=== PATIENT | male | born 1930 | race Caucasian/White ===

== ENCOUNTER 2017-02-15 01:26 | Inpatient (IN) | payer OTHER, MEDICARE ==
[~2017-02-15] VITALS: Ht 177.8 cm; Wt 83.2 kg
[2017-02-15] VITALS (14 sets, daily range): BP systolic 146–188; BP diastolic 66–88; PULSE 85–104; RESP 16–18; TEMP 97.8–100; O2SAT 93–100
[~2017-02-15 01:26] MED LIST: ALLO300T2 PO; GEMF600T PO; HYDR-2376 PO; HYDR-3580 PO; LISI-515 PO; PROT40TA PO; RIVA10 PO; XARE10TA PO; [UNRECOGNIZED DRUG - OTHER]
--- NOTE | 2017-02-15 01:54 | PD ---
HPI Chief Complaint: Fall Time Seen by Provider: 01:34 Travel History International Travel<30 days: No Contact w/Intl Traveler<30days: No Traveled to known affect area: No History of Present Illness HPI The patient is an 86 year old male who presents to the [facility] emergency department with a history of losing his balance prior to arrival and falling onto the tile floor. The patient reports that he has had an unsteady gait since May 2016 when he broke his right hip and had hip surgery. He was previously walking around with a cane, however as he was getting stronger he stopped using it. The patient reports that he now has left hip pain. He has pain with any attempts at range of motion. The patient has an abrasion to the left cheek with bleeding that has been controlled. The patient denies having any headache or loss of consciousness. He denies having any neck pain, paresthesias, numbness or tingling to his extremities or weakness to his extremities. The patient denies having any chest pain, chest pressure, shortness of breath. He denies having any abdominal pain. On review of systems , he denies having any recent fevers, cough, congestion, urinary symptoms, or neurologic symptoms. 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 Blood Disorders: Yes (LEUKEMIA) Cancer: No Cardiovascular Problems: No High Cholesterol: Yes Chemotherapy: No Diminished Hearing: No Gastrointestinal Disorders: No GERD: Yes Gout: Yes Genitourinary: Yes (PROSTATE ENLARGED) Hypertension: Yes Musculoskeletal: No Neurologic: No Psychiatric: No Respiratory: No Radiation Therapy: No Tetanus Vaccination: > 5 Years Influenza Vaccination: No Past Surgical History Narrative Surgical The patient's past surgical history is significant for tonsillectomy, cholecystectomy, endoscopy and colonoscopy, and right hip ORIF in May 2016. Abdominal Surgery: Yes (ALEJANDRA MARCH 2007) Cardiac Surgery: No Cholecystectomy: Yes Ear Surgery: No Endocrine Surgery: No Eye Surgery: No Genitourinary Surgery: No Gynecologic Surgery: No Thoracic Surgery: No Tonsillectomy: Yes Social History Alcohol Use: Yes Tobacco Use: No Substance Use: No Allergies-Medications (Allergen,Severity, Reaction): Coded Allergies: Contrast Media (Verified Allergy, Severe, REDDNESS AND FEVER , 06/06/16) Indocin (Verified Allergy, Severe, GASTRIC BLEEDING, 06/06/16) Iodine (Verified Allergy, Unknown, 06/07/16) Reported Meds & Prescriptions Reported Meds & Active Scripts Active Reported Gemfibrozil 600 Mg Tab 600 Mg PO BIDAC Take 30 minutes prior to breakfast and dinner. Lisinopril 20 Mg Tab 20 Mg PO BID [Pro Crit Prn] WEEKLY Review of Systems Except as stated in HPI: all other systems reviewed are Neg General / Constitutional: No: Fever Eyes: No: Visual changes HENT: No: Headaches, Congestion, Neck Stiffness, Neck Pain Cardiovascular: No: Chest Pain or Discomfort Respiratory: No: Shortness of Breath Gastrointestinal: No: Abdominal Pain Genitourinary: No: Dysuria Musculoskeletal: Positive: Myalgias, Arthralgias, Limited ROM, Pain Skin: No Rash Neurologic: No: Weakness, Focal Abnormalities, Headache, Change in Mentation, Slurred Speech, Sensory Disturbance Psychiatric: No: Depression Endocrine: No: Polydipsia Hematologic/Lymphatic: No: Easy Bruising Physical Exam Narrative General: The patient is a well-developed well-nourished male in no acute distress. Head and Neck exam: Head is normocephalic, with an abrasion noted along the left cheek. No active bleeding. No facial bone pain or crepitus on palpation. No increased motility on palpation. Eyes: EOMI, pupils are equal round and reactive to light. Nose: Midline septum with pink mucous membranes Mouth: Dentition unremarkable. Moist mucus membranes. Posterior oropharynx is not erythematous. No tonsillar hypertrophy. Uvula midline. Airway patent. Neck: No palpable lymphadenopathy. No nuchal rigidity. No thyromegaly. Cardiovascular: Regular rate and rhythm without murmurs, gallops, or rubs. Lungs: Clear to auscultation bilaterally. No wheezes, rhonchi, or rales. Abdomen: Soft, without tenderness to palpation in all 4 quadrants of the abdomen. No guarding, rebound, or rigidity. Normal bowel sounds are audible. No tenderness on palpation of McBurney's point. Negative Tena's sign. Extremities: No clubbing, cyanosis, or edema. 2+ pulses in all 4 extremities. The patient on examination of the left leg is noted to have some shortening and external rotation. The patient has pain with internal and external rotation of the left leg at the hip. No significant discomfort with flexion of the left hip. No pain on palpation of the right lower extremity or bilateral upper extremities. The patient has deformity of both elbows, the right hand and right foot Related to Complications from Gout. Back: No spinous process tenderness to palpation. No costovertebral angle tenderness to palpation. Neurologic Exam: Cranial nerves 2-12 were intact on exam. Strength is 5/5 in all 4 extremities. No sensory deficits noted. Skin Exam: No rash noted. Data Data Last Documented VS Vital Signs Date Time Temp Pulse Resp B/P Pulse Ox O2 Delivery O2 Flow Rate FiO2 02/15/17 02:02 16 99 Room Air 02/15/17 01:44 97 02/15/17 01:41 98.6 169/78 Orders Electrocardiogram (02/15/17 01:45) Complete Blood Count With Diff (02/15/17 01:45) Comprehensive Metabolic Panel (02/15/17 01:45) Prothrombin Time / Inr (Pt) (02/15/17 01:45) Act Partial Throm Time (Ptt) (02/15/17 01:45) Magnesium (Mg) (02/15/17 01:45) Chest, Single Ap (02/15/17 01:45) Iv Access Insert/Monitor (02/15/17 01:45) Ecg Monitoring (02/15/17 01:45) Oximetry (02/15/17 01:45) Hip, Uni(Ap&Lat) W Ap Pelvis (02/15/17 ) Consult Orthopedic (02/15/17 ) Admit To Inpatient (02/15/17 ) Vital Signs (Adult) Q4H (02/15/17 03:29) Activity Bed Rest (02/15/17 03:29) Educational Aide / Telemetry .CONTINUOUS (02/15/17 03:29) Diet Npo (02/15/17 Breakfast) Sodium Chloride 0.9% Flush (Ns Flush) (02/15/17 03:30) Sodium Chloride 0.9% Flush (Ns Flush) (02/15/17 09:00) Basic Metabolic Panel (Bmp) (02/16/17 06:00) Complete Blood Count With Diff (02/16/17 06:00) Case Management Consult (02/15/17 03:29) Naloxone Inj (Narcan Inj) (02/15/17 03:30) Inpatient Certification (02/15/17 ) Morphine Inj (Morphine Inj) (02/15/17 03:45) Admit Order (Ed Use Only) (02/15/17 03:36) Labs Laboratory Tests Test 02/15/17 01:30 White Blood Count 8.2 TH/MM3 Red Blood Count 3.04 MIL/MM3 Hemoglobin 9.4 GM/DL Hematocrit 27.4 % Mean Corpuscular Volume 90.1 FL Mean Corpuscular Hemoglobin 31.0 PG Mean Corpuscular Hemoglobin 34.3 % Concent Red Cell Distribution Width 20.5 % Platelet Count 134 TH/MM3 Mean Platelet Volume 9.5 FL Neutrophils (%) (Auto) 56.7 % Lymphocytes (%) (Auto) 34.3 % Monocytes (%) (Auto) 8.4 % Eosinophils (%) (Auto) 0.3 % Basophils (%) (Auto) 0.3 % Neutrophils # (Auto) 4.7 TH/MM3 Lymphocytes # (Auto) 2.8 TH/MM3 Monocytes # (Auto) 0.7 TH/MM3 Eosinophils # (Auto) 0.0 TH/MM3 Basophils # (Auto) 0.0 TH/MM3 CBC Comment AUTO DIFF Differential Total Cells 100 Counted Neutrophils % (Manual) 41 % Band Neutrophils % 19 % Lymphocytes % 35 % Monocytes % 3 % Neutrophils # (Manual) 5.1 TH/MM3 Metamyelocytes 2 % Differential Comment FINAL DIFF MANUAL Platelet Estimate LOW Platelet Morphology Comment ENLARGED Acanthocytes OCC Keratocytes OCC Prothrombin Time 10.7 SEC Prothromb Time International 1.0 RATIO Ratio Activated Partial 24.5 SEC Thromboplast Time Sodium Level 137 MEQ/L Potassium Level 3.9 MEQ/L Chloride Level 104 MEQ/L Carbon Dioxide Level 21.9 MEQ/L Anion Gap 11 MEQ/L Blood Urea Nitrogen 19 MG/DL Creatinine 1.35 MG/DL Estimat Glomerular Filtration 50 ML/MIN Rate Random Glucose 155 MG/DL Calcium Level 8.6 MG/DL Magnesium Level 1.7 MG/DL Total Bilirubin 0.4 MG/DL Aspartate Amino Transf 18 U/L (AST/SGOT) Alanine Aminotransferase 21 U/L (ALT/SGPT) Alkaline Phosphatase 88 U/L Total Protein 7.3 GM/DL Albumin 4.2 GM/DL [facility] Decision Making Medical Screen Exam Complete: Yes Emergency Medical Condition: Yes Medical Record Reviewed: Yes Interpretation(s) Last Impressions Chest X-Ray 02/15/17 0145 Signed Impressions: Service Date/Time: Wednesday, February 15, 2017 02:04 - CONCLUSION: No acute disease. Dominic Real MD Hip and Pelvis X-Ray 02/15/17 0000 Signed Impressions: Service Date/Time: Wednesday, February 15, 2017 02:04 - CONCLUSION: Mildly displaced left femoral neck fracture. Dominic Real MD Differential Diagnosis Left hip fracture, versus dislocation, versus musculoskeletal strain, versus pelvic fracture Narrative Course During the course of the patients emergency department visit, the patients history, examination, and differential diagnosis were reviewed with the patient. The patient had IV access obtained and blood work sent for analysis. The patient was placed on a [employer] team member with oximetry and blood pressure monitoring. An ECG was done on arrival. The patient's ECG reveals a sinus rhythm heart rate of 97, QRS duration 139 ms, QTC 423 ms, no acute ST segment elevation is noted. The patients laboratory studies were reviewed and remarkable for a white count of 8.2, hemoglobin 9.4, platelets 134 with 8.4 monocytes, CMP is remarkable for a BUN of 19, creatinine 1.35, glucose 155, PT PTT within normal limits Radiology studies were reviewed and remarkable for a left hip femoral neck fracture. Chest x-ray shows no acute abnormality. The patients results were discussed with the patient, including the plan of care. I explained that further testing and/ or monitoring is indicated based on the patients history, examination, and/ or laboratory findings. Therefore, I recommended admission for additional evaluation. The patient expressed understanding and was agreeable with this plan. The patient was admitted to the hospital in stable condition and [facility] Physician Communication Physician Communication At 3:22 AM I spoke to Dr. Donovan regarding this patient's case. He requested that the patient be admitted to the medical service and a consultation be placed to Dr. Newberry for this fracture in the morning. The patient's case was discussed with Dr. Viramontes who did agree to admit the patient for further evaluation and treatment at this time. Diagnosis Primary Impression: Fracture of femoral neck, left Qualified Code: S72.002A - Closed fracture of neck of left femur, initial encounter Admitting Information Admitting Physician Requests: Admit Raysa Méndez MD Feb 15, 2017 01:54
[2017-02-15 02:22] LABS: AUTOMATED NEUTROPHIL # 4.7 TH/MM3 (1.8-7.7); BASOPHIL % 0.3 % (0.0-2.0); EOSINOPHIL % 0.3 % (0.0-4.0); HEMATOCRIT 27.4 % (39.0-51.0); LYMPH % 34.3 % (9.0-44.0); LYMPHOCYTE # 2.8 TH/MM3 (1.0-4.8); MEAN CELL VOLUME 90.1 FL (80.0-100.0); MEAN CORPUSCULAR HGB CONC 34.3 % (32.0-36.0); MONO % 8.4 % (0.0-8.0); NEUT % 56.7 % (16.0-70.0); PLATELET COUNT 134 TH/MM3 (150-450); RED BLOOD COUNT 3.04 MIL/MM3 (4.50-5.90); RED CELL DISTRIBUTION WIDTH 20.5 % (11.6-17.2); WHITE BLOOD COUNT 8.2 TH/MM3 (4.0-11.0)
[2017-02-15 02:32] LABS: HEMO FLAGS AUTO DIFF
--- NOTE | 2017-02-15 02:35 | RADRPT ---
EXAM DATE/TIME: 02/15/2017 02:04 [facility] COMPARISON: CHEST SINGLE AP, June 10, 2016, 9:01. INDICATIONS : Chest pain, fall. MEDICAL HISTORY : None. SURGICAL HISTORY : None. ENCOUNTER: Initial ACUITY: 1 day PAIN SCORE: 0/10 LOCATION: Bilateral chest FINDINGS: A single view of the chest demonstrates the lungs to be symmetrically aerated without evidence of mas s, infiltrate or effusion. The cardiomediastinal contours are unremarkable. Osseous structures are intact. CONCLUSION: No acute disease. Dominic Real MD on February 15, 2017 at 2:33 Board Certified Radiologist. This report was verified electronically.
--- NOTE | 2017-02-15 02:36 | RADRPT ---
EXAM DATE/TIME: 02/15/2017 02:04 [facility] COMPARISON: No previous studies available for comparison. INDICATIONS : Fall. MEDICAL HISTORY : None. SURGICAL HISTORY : None. ENCOUNTER: Initial ACUITY: 1 day PAIN SCORE: 10/10 LOCATION: Left hip FINDINGS: Examination of the left hip was performed with AP Pelvis. Mildly displaced left femoral neck fracture . Mild degenerative changes left. The acetabulum is grossly intact. CONCLUSION: Mildly displaced left femoral neck fracture. Dominic Real MD on February 15, 2017 at 2:33 Board Certified Radiologist. This report was verified electronically.
[2017-02-15 02:37] LABS: ALT (GPT) 21 U/L (12-78); ANION GAP 11 MEQ/L (5-15); AST (GOT) 18 U/L (15-37); BICARBONATE 21.9 MEQ/L (21.0-32.0); BLOOD UREA NITROGEN 19 MG/DL (7-18); CHLORIDE 104 MEQ/L (98-107); GLOMERULAR FILTRATION RATE 50 ML/MIN (>89); MAGNESIUM 1.7 MG/DL (1.5-2.5); POTASSIUM 3.9 MEQ/L (3.5-5.1); SODIUM (NA) 137 MEQ/L (136-145)
[2017-02-15 02:39] LABS: ALKALINE PHOSPHATASE 88 U/L (45-117); TOTAL BILIRUBIN ADULT 0.4 MG/DL (0.2-1.0)
[2017-02-15 02:42] LABS: APTT (PATIENT) 24.5 SEC (24.3-30.1); PROTHROMBIN TIME - PATIENT 10.7 SEC (9.8-11.6)
[2017-02-15] MEDS ORDERED: SODIUM CHLORIDE 0.9% FLUSH 10 ML FLUSH IV FLUSH PRN (03:30)
[2017-02-15] MEDS ORDERED: NALOXONE HCL 0.4 MG/ML AMP IV PRN (03:30)
[2017-02-15] MEDS ORDERED: MORPHINE SULFATE 4 MG/ML INJ IV PUSH PRN ×2 (03:45→09:15)
[2017-02-15 04:04] LABS: ACANTHOCYTES OCC (NORMAL); BANDS 19 % (0-6); METAMYELOCYTES 2 % (0-1); NEUTROPHIL # MANUAL DIFF 5.1 TH/MM3 (1.8-7.7); PLATELET ESTIMATE SMEAR LOW (NORMAL); POLYS (SEG NEUTROPHILS) 41 % (16-70); SCAN/DIFF FINAL DIFF MANUAL; WBC DIFF SAMPLE 100
[2017-02-15 04:05] LABS: KERATOCYTES OCC (NORMAL); PLATELET MORPHOLOGY ENLARGED (NORMAL)
[2017-02-15] MEDS ORDERED: METOPROLOL TARTRATE 25 MG TAB PO PRN (05:30)
[2017-02-15] MEDS ORDERED: SODIUM CHLORID 0.9% 500 ML IV PRN (05:30)
[2017-02-15] MEDS ORDERED: CHLORHEXIDINE GLUCONATE 2 % 1 PACK (2 CLOTHS) TOPICAL PRN (05:30)
[2017-02-15] MEDS ORDERED: LACTATED RINGER'S 1000 ML IV PRN (05:30)
[2017-02-15] MEDS ORDERED: INSULIN HUMAN REGULAR 1,000 UNITS/10 ML VIAL SQ PRN (05:30)
--- NOTE | 2017-02-15 06:15 | HHI.HP ---
HPI [facility] Primary Care Physician [facility] Admission Diagnosis left hip femoral neck fx Diagnoses: Travel History International Travel<30 Days: No Contact w/Intl Traveler <30 Da: No Traveled to Known Affected Are: No History of Present Illness History from patient's, ER physician communication, and review of medical records. Next Patient reported that he fell asked his kitchen while he turned around and somehow lost balance. He stated he had bad feet with severe deformities due to gouty arthritis. He usually does not use a cane or a walker at home. He denies any premonitory symptoms prior to this fall. He stated he simply lost balance and fell. He denies syncope. Denies hitting his head. He reports he called someone who had keys to his home who then called 911. Denies being on blood thinners. Reports he had a fall in last May or and had right hip fracture for which he had surgery done. He was at rehabilitation facility and was finally discharged home in July 2016. Apart from the above, patient denies any recent fever/nausea/vomiting/diarrhea/ urinary burning or pain on urination. Denies any hematemesis/hematochezia/melena/hematuria. Denies any chest pain/palpitations/shortness of breath/focal weakness. Review of Systems Except as stated in HPI: all other systems reviewed are Neg Past Family Social History Past Medical History CLL not on any chemo or radiation anemia- on procrit 2 weeks ago, hgb >10 gout Past Surgical History colonoscopy right hip orif gallbladder Reported Medications Patient's medications list on EMRreviewed Allergies: Coded Allergies: Contrast Media (Verified Allergy, Severe, REDDNESS AND FEVER , 06/06/16) Indocin (Verified Allergy, Severe, GASTRIC BLEEDING, 06/06/16) Iodine (Verified Allergy, Unknown, 06/07/16) Family History brother- sepsis, but drank a lot dad- and mom had cancer but not sure what kind Social History never smoked, drinks socially, no drugs lives by himself stilldriving Physical Exam Vital Signs Vital Signs Date Time Temp Pulse Resp B/P Pulse Ox O2 Delivery O2 Flow Rate FiO2 02/15/17 05:15 98.6 99 17 177/79 96 02/15/17 04:00 95 16 154/80 98 Room Air 02/15/17 02:02 16 99 Room Air 02/15/17 01:44 97 16 98 Room Air 02/15/17 01:41 98.6 97 16 169/78 98 Physical Exam GENERAL: This is a well-nourished, well-developed patient, in no apparent distress. SKIN: No rashes, ecchymoses or lesions. Cool and dry. HEAD: Atraumatic. Normocephalic. No temporal or scalp tenderness. EYES: No scleral icterus. No injection or drainage. ENT: Nose without bleeding, purulent drainage or septal hematoma. Airway patent. NECK: Trachea midline. No JVD CARDIOVASCULAR: Regular rate and rhythm without murmurs, gallops, or rubs. RESPIRATORY: Clear to auscultation. Breath sounds equal bilaterally. No wheezes , rales, or rhonchi. GASTROINTESTINAL: Abdomen soft, non-tender, nondistended.No guarding. MUSCULOSKELETAL: Extremities without clubbing, cyanosis, or edema. No calf tenderness. NEUROLOGICAL: Awake and alert. Cranial nerves II through XII intact. left hip pain with slightly shorter and mild internal rotation. Normal speech. Laboratory Laboratory Tests Test 02/15/17 01:30 White Blood Count 8.2 Red Blood Count 3.04 Hemoglobin 9.4 Hematocrit 27.4 Mean Corpuscular Volume 90.1 Mean Corpuscular Hemoglobin 31.0 Mean Corpuscular Hemoglobin 34.3 Concent Red Cell Distribution Width 20.5 Platelet Count 134 Mean Platelet Volume 9.5 Neutrophils (%) (Auto) 56.7 Lymphocytes (%) (Auto) 34.3 Monocytes (%) (Auto) 8.4 Eosinophils (%) (Auto) 0.3 Basophils (%) (Auto) 0.3 Neutrophils # (Auto) 4.7 Lymphocytes # (Auto) 2.8 Monocytes # (Auto) 0.7 Eosinophils # (Auto) 0.0 Basophils # (Auto) 0.0 CBC Comment AUTO DIFF Differential Total Cells 100 Counted Neutrophils % (Manual) 41 Band Neutrophils % 19 Lymphocytes % 35 Monocytes % 3 Neutrophils # (Manual) 5.1 Metamyelocytes 2 Differential Comment FINAL DIFF MANUAL Platelet Estimate LOW Platelet Morphology Comment ENLARGED Acanthocytes OCC Keratocytes OCC Prothrombin Time 10.7 Prothromb Time International 1.0 Ratio Activated Partial 24.5 Thromboplast Time Sodium Level 137 Potassium Level 3.9 Chloride Level 104 Carbon Dioxide Level 21.9 Anion Gap 11 Blood Urea Nitrogen 19 Creatinine 1.35 Estimat Glomerular Filtration 50 Rate Random Glucose 155 Calcium Level 8.6 Magnesium Level 1.7 Total Bilirubin 0.4 Aspartate Amino Transf 18 (AST/SGOT) Alanine Aminotransferase 21 (ALT/SGPT) Alkaline Phosphatase 88 Total Protein 7.3 Albumin 4.2 Result Diagram: 02/15/17 01302/15/17 013 Imaging Last 48 hours Impressions Chest X-Ray 02/15/17 0145 Signed Impressions: Service Date/Time: Wednesday, February 15, 2017 02:04 - CONCLUSION: No acute disease. Dominic Real MD Hip and Pelvis X-Ray 02/15/17 0000 Signed Impressions: Service Date/Time: Wednesday, February 15, 2017 02:04 - CONCLUSION: Mildly displaced left femoral neck fracture. Dominic Real MD Assessment and Plan Assessment and Plan Impression: Left femoral neck fracture Status post fall Severe gouty arthritis CLLnot on chemotherapy or radiation HTN Plan: Nothing by mouth. Pain control Orthopedics was consulted. Resume home meds. DVT prophylaxisto start chemical prophylaxis postoperatively. GI prophylaxison pantoprazole. Discussed Condition With Patient, ER physician, patient's nurse Physician Certification 2 Midnight Certification Type: Admission for Inpatient Services Order for Inpatient Services The services are ordered in accordance with Medicare regulations or non- Medicare payer requirements, as applicable. In the case of services not specified as inpatient-only, they are appropriately provided as inpatient services in accordance with the 2-midnight benchmark. Estimated LOS (days): 3 days is the estimated time the patient will need to remain in the hospital, assuming treatment plan goals are met and no additional complications. Post-Hospital Plan: Not yet determined Lorena Viramontes MD Feb 15, 2017 06:15
[2017-02-15] MEDS ORDERED: ENALAPRILAT 2.5 MG/2 ML VIAL IV PUSH PRN (06:45)
[2017-02-15] MEDS: GEMFIBROZIL 600 MG TAB PO SCH ×2 (07:00→12:58)
--- NOTE | 2017-02-15 07:02 | PD.ORT.PN ---
Subjective Subjective Remarks s/p fall at home in kitchen reports left hip pain. no other complaints. history of right hip fx previously fixed by Dr Aly. history of gout in feet. Objective Vitals Vital Signs Date Time Temp Pulse Resp B/P Pulse Ox O2 Delivery O2 Flow Rate FiO2 02/15/17 06:34 178/79 02/15/17 05:15 98.6 99 17 177/79 96 02/15/17 04:00 95 16 154/80 98 Room Air 02/15/17 02:02 16 99 Room Air 02/15/17 01:44 97 16 98 Room Air 02/15/17 01:41 98.6 97 16 169/78 98 I/O 02/14/17 02/14/17 02/14/17 02/15/17 02/15/17 02/15/17 07:00 15:00 23:00 07:00 15:00 23:00 Intake Total 0 ml Balance 0 ml Intake Oral 0 ml # Voids 1 # Bowel Movements 0 Result Diagram: 02/15/17 0130 02/15/17 0130 Other Results Laboratory Tests Test 02/15/17 01:30 Prothrombin Time 10.7 SEC (9.8-11.6) Prothromb Time International 1.0 RATIO Ratio Imaging Last 24 hours Impressions Chest X-Ray 02/15/17 0145 Signed Impressions: Service Date/Time: Wednesday, February 15, 2017 02:04 - CONCLUSION: No acute disease. Dominic Real MD Hip and Pelvis X-Ray 02/15/17 0000 Signed Impressions: Service Date/Time: Wednesday, February 15, 2017 02:04 - CONCLUSION: Mildly displaced left femoral neck fracture. Dominic Real MD Objective Remarks LLE: pain in hip with motion. no pain in knee or foot. noticeable gout and tophi of foot. NVI RLE: no pain. full motion. noticeable gout and tophi of foot. NVI BUE: no pain with motion. NVI Assessment & Plan Assessment and Plan 1) Left Femoral Neck Fx -NPO -sign consents -surgery this AM Alfonzo Miller Feb 15, 2017 07:02
[2017-02-15] MEDS ORDERED: VANCOMYCIN HCL 1000 MG VIAL ONE (07:31)
[2017-02-15] MEDS ORDERED: ceFAZolin 2 GM PREMIX 50 ML ONE (07:31)
[2017-02-15] MEDS ORDERED: GENTAMICIN SULFATE 80 MG/2 ML VIAL ONE (07:31)
[2017-02-15] MEDS ORDERED: TRANEXAMIC ACID INJ 1,140 MG in SODIUM CHLORIDE 0.9% INJ 100 ML IV SCH (07:45)
[2017-02-15] MEDS ORDERED: ENALAPRILAT 1.25 MG/ML VIAL IV PUSH PRN (08:00)
--- NOTE | 2017-02-15 08:04 | MB ---
cc: JORDAN ARMSTRONG MD, TODD DATE OF ADMISSION 02/15/2017 DATE OF CONSULTATION 02/15/2017 REASON FOR CONSULTATION Left femoral neck fracture. CONSULTING PHYSICIAN Dr. Jordan De Oliveira DIAGNOSIS Left femoral neck fracture. HISTORY Steve is an 86-year male who is known to me from previous right femoral neck fracture. He was at home in his kitchen when he fell. He turned around and lost his lost balance. He denies any dizziness, syncope or loss of consciousness. He has severe gouty arthritis of both feet. He normally ambulates unassisted. He had immediate left hip pain. He is unable to stand or ambulate. He presented to the emergency room where x-rays revealed a displaced left femoral neck fracture. He is currently awake and alert on the orthopedic floor. The pain is worse with movement and is improved with rest. PAST MEDICAL HISTORY ILLNESSES 1. Chronic lymphocytic leukemia. 2. Anemia. 3. Gout. SURGERIES 1. Colonoscopy. 2. Right hip hemiarthroplasty. 3. Cholecystectomy. ALLERGIES CONTRAST. INDOCIN. IODINE. MEDICATIONS Please see EMR for complete list of medications. This was reviewed. FAMILY HISTORY Positive for cancer in his mother and father and alcohol abuse in his brother. SOCIAL HISTORY The patient denies tobacco or drug use. He lives alone. He ambulates unassisted. REVIEW OF SYSTEMS The patient denies headache, visual changes, neck pain, chest pain, shortness of breath, abdominal pain, nausea, vomiting or recent weight loss. He complains of left hip pain. The pain is worse with movement. PHYSICAL EXAMINATION GENERAL: The patient is a pleasant 86-year male in no acute distress. He is awake and alert. He has a left femoral neck fracture. Treatment options were discussed with the patient including left hip hemiarthroplasty. The risks of surgery include bleeding, infection, injury to arteries, nerves, blood vessels, hip dislocation, leg length discrepancies, fracture of femur as well as medical complications including blood clot, stroke, heart attack and . All questions were answered. Informed consent was confirmed and operative site was marked. I will plan on surgery today. A mid-level provider in my office, nurse practitioner or PA, may see this patient on a follow-up basis and continue to implement the objective of this plan including: Starting or adjusting medications, injections of muscle, tendon, bursa or joints, cast application, orthotic or brace application, physical therapy, further radiographic studies including x-ray, MRI, CT, ultrasounds or bone scan, vascular studies, neurologic studies, or other specialist consultations, and proceeding with surgical management as appropriate. Edgard MD GREGORIO Farias/KRISH /7:24 AM /7:59 AM
[2017-02-15] MEDS ORDERED: PROPOFOL 200 MG/20 ML AMP IV ONE (08:25)
[2017-02-15] MEDS ORDERED: PHENYLEPH/NS 1000 MCG/10 ML SYR IV ONE (08:25)
[2017-02-15] MEDS ORDERED: LACTATED RINGER'S 1000 ML INJ 1,000 ML IV ONE (08:25)
[2017-02-15] MEDS ORDERED: SODIUM CHLORIDE 0.9% FLUSH 10 ML FLUSH IV FLUSH SCH (09:00)
--- NOTE | 2017-02-15 09:13 | EKG ---
Date Performed: 02/15/2017 Time Performed: 01:25:40 PTAGE: 86 years EKG: Sinus rhythm POSSIBLE LEFT ATRIAL ENLARGEMENT INTRAVENTRICULAR CONDUCTION DELAY ABNORMAL ECG PREVIOUS TRACING : 12/17/2016 23.26 DOCTOR: Kenneth Rosales Interpretating Date/Time 02/15/2017 09:11:09
[2017-02-15] MEDS ORDERED: SODIUM CHLORIDE 0.9% FLUSH 5 ML FLUSH IVF PRN (09:15)
--- NOTE | 2017-02-15 09:16 | PD.OP ---
cc: Edgard Newberry MD Operative Report Date of Surgery: Feb 15, 2017 Preoperative Diagnosis: Left femoral neck fracture Postoperative Diagnosis: Procedure: Left hip hemiarthroplasty Anesthesia: Gen. Surgeon: Edgard Newberry Door Worker(s): PINA Cota PA-C The surgical procedure was assisted by my physician home based assistant. My P.A. presence was necessary throughout this case for the manipulation and positioning of the surgical extremity. My P.A. was assisting me throughout the duration of this procedure. The skill set of a physician home based assistant was medically necessary to complete this procedure. During the surgical case the surgical garment inspector was working at the back table and the physician home based assistant was directly assisting me. Operation and Findings: PLAN OF ACTIVITY Weight bear as tolerated. IMPLANTS USED DePuy Corail size 14 stem with size [55] bipolar head and [+5] neck. DRAIN: 7 mm Toi-Santiago drain DETAILS OF PROCEDURE This patient was brought into the operating room and placed on the OR table. The patient was given anesthesia. The patient received IV antibiotics. The patient was then placed in lateral decubitus position. The left hip and leg were prepped with alcohol, followed by Hibiclens and draped in a usual sterile fashion. Clean air was used for this procedure. Time out procedure was performed. The procedure began with a 5 inch incision over the posterolateral hip. The subcutaneous tissue was dissected with the Bovie. The iliotibial band were split in line with fibers. The Charnley retractor was placed. The piriformis and external rotators were released from the femur and tagged with a #1 Vicryl suture. The capsule is now incised and tagged with #1 Vicryl. The femoral neck fracture was now visualized. A corkscrew was now used to remove the femoral head. The femoral head was sized and measured. Soft tissue was now protected. The hip skid was placed underneath the femoral neck. An oscillating saw was used to make a femoral neck cut. At this point attention was turned to preparation of the proximal femur. A box osteotome was used to remove the lateral cortex of the femoral neck. The T- handle reamer was used to open the femoral canal. Next, the canal was broached. A lateralizing reamer was used to help lateralize the prosthesis. At this point a trial head and neck were placed. The hip was reduced. The patient was found to have excellent stability with good range of motion. Trial components were removed. Soft tissue and bone were thoroughly irrigated. A Corail stem was now opened. The stem was now impacted into the proximal femur. Care was taken to keep appropriate anteversion. The head and neck were now impacted onto the stem. The hip was again reduced. The hip was found to have good range of motion and good stability. Leg lengths were clinically equal. The wound was thoroughly irrigated. The capsule, piriformis and iliotibial band were closed with #1 Vicryl. Subcutaneous tissue was closed with 3-0 Vicryl. The skin was closed with luann. A sterile dressing was applied with Primapore. The patient was placed into a knee immobilizer. The patient was awakened and transferred to the recovery room in stable condition. Needle and sponge counts were correct. Edgard Newberry MD Feb 15, 2017 09:16
[2017-02-15] MEDS ORDERED: Post-op Orders (for Pharmacy) MISC XX ONE (09:32)
[2017-02-15] MEDS ORDERED: DO NOT ADM ANY ANTICOAGULANT DRUGS PRN (09:37)
--- NOTE | 2017-02-15 11:35 | RADRPT ---
EXAM DATE/TIME: 02/15/2017 10:22 [facility] COMPARISON: HIP LEFT (AP&LAT 2/3VWS) W AP PELVIS, February 15, 2017, 2:04. INDICATIONS : Post op left total hip. MEDICAL HISTORY : None. SURGICAL HISTORY : None. ENCOUNTER: Initial ACUITY: 1 day PAIN SCORE: 0/10 LOCATION: Left Hip FINDINGS: Interval left hip arthroplasty. The arthroplasty components are in normal anatomic alignment and are intact. No significant acute bony fracture. Right hip arthroplasty is stable in appearance. Postsurgi tamika features are noted in the left hip soft tissues. CONCLUSION: 1. Status post left hip arthroplasty in normal anatomic alignment without acute fracture. Killian Messina MD on February 15, 2017 at 11:31 Board Certified Radiologist. This report was verified electronically.
[2017-02-15] MEDS ORDERED: ERGOCALCIFEROL (VIT D2) 50,000 UNIT CAP PO ONE (12:00)
[2017-02-15] MEDS: LISINOPRIL 20 MG TAB PO SCH ×2 (12:58→20:26)
[2017-02-15] MEDS: ceFAZolin 2 GM PREMIX 50 ML IV SCH ×2 (13:01→20:26)
[2017-02-15] MEDS ORDERED: SODIUM CHLOR 0.9% 1000 ML INJ 1,000 ML IV SCH (15:00)
[2017-02-15] MEDS: SODIUM CHLOR 0.9% 1000 ML INJ 1,000 ML IV SCH (17:30)
[2017-02-15] MEDS ORDERED: cloNIDine HCL 0.1 MG TAB PO PRN (17:30)
[2017-02-15] MEDS: SODIUM CHLORIDE 0.9% FLUSH 5 ML FLUSH IVF SCH (20:26)
[2017-02-16] VITALS (8 sets, daily range): BP systolic 134–161; BP diastolic 56–70; PULSE 84–100; RESP 15–18; TEMP 98.9–101.1; O2SAT 93–99
[2017-02-16] MEDS: ceFAZolin 2 GM PREMIX 50 ML IV SCH (01:36)
[2017-02-16] MEDS: GEMFIBROZIL 600 MG TAB PO SCH ×2 (06:49→15:20)
--- NOTE | 2017-02-16 06:49 | PD.ORT.PN ---
Subjective Subjective Remarks Resting comfortably with no new complaints Objective Vitals Vital Signs Date Time Temp Pulse Resp B/P Pulse Ox O2 Delivery O2 Flow Rate FiO2 02/16/17 04:45 99.3 98 17 154/70 99 02/16/17 00:40 99.9 93 18 157/70 99 02/15/17 21:00 85 02/15/17 20:30 100.0 91 18 146/66 97 02/15/17 18:33 97 Nasal Cannula 2.00 02/15/17 18:15 173/74 02/15/17 16:15 99.0 99 18 174/88 97 02/15/17 13:17 93 Nasal Cannula 2.00 02/15/17 11:40 97.8 94 17 169/84 100 02/15/17 11:00 88 15 164/79 99 Nasal Cannula 3 02/15/17 10:45 84 15 163/74 99 Nasal Cannula 3 02/15/17 10:30 83 13 162/70 99 Nasal Cannula 3 02/15/17 10:15 80 19 155/67 99 Nasal Cannula 3 02/15/17 10:00 81 20 152/72 100 Nasal Cannula 3 02/15/17 09:45 82 17 134/60 100 Nasal Cannula 3 02/15/17 09:37 97.8 83 12 146/68 100 Nasal Cannula 4 02/15/17 07:20 98.7 104 18 188/86 97 I/O 02/15/17 02/15/17 02/15/17 02/16/17 02/16/17 02/16/17 07:00 15:00 23:00 07:00 15:00 23:00 Intake Total 0 ml 1240 ml 240 ml 240 ml Output Total 600 ml 470 ml 450 ml Balance 0 ml 640 ml -230 ml -210 ml Intake Oral 0 ml 240 ml 240 ml 240 ml Other 1000 ml Output Urine Total 450 ml 350 ml 450 ml Drainage Total 120 ml Estimated Blood Loss 150 ml # Voids 1 0 # Bowel Movements 0 0 0 0 Result Diagram: 02/15/1712902/15/17 013 Imaging Last 24 hours Impressions Chest X-Ray 02/15/17 0145 Signed Impressions: Service Date/Time: Wednesday, February 15, 2017 02:04 - CONCLUSION: No acute disease. Dominic Real MD Hip and Pelvis X-Ray 02/15/17 0000 Signed Impressions: Service Date/Time: Wednesday, February 15, 2017 02:04 - CONCLUSION: Mildly displaced left femoral neck fracture. Dominic Real MD Objective Remarks LLE: Clean dry dressings intact with drain in place. Knee immobilizer in position. Noticeable gout and tophi of foot. NVI RLE: no pain. full motion. noticeable gout and tophi of foot. NVI BUE: no pain with motion. NVI Assessment & Plan Assessment and Plan Left hip hemiarthroplasty POD 1 Physical therapy weightbearing as tolerated with posterior hip precautions Knee immobilizer in place when bed Daily dressing changes beginning POD 2 with drain removal Lovenox Incentive spirometry Case management for rehabilitation placement Follow-up Dr. Newberry or PA in 2 weeks Kamron Draper Jr. Feb 16, 2017 06:49
[2017-02-16] MEDS ORDERED: WALKER/ADULT/FO1 MIS (07:03)
[2017-02-16] MEDS ORDERED: HYDR-3580 PO (07:03)
[2017-02-16] MEDS ORDERED: ERGO1CAP30 PO (07:03)
[2017-02-16] MEDS ORDERED: XARE10TA PO (07:03)
[2017-02-16] MEDS ORDERED: CALCTAB19 PO (07:03)
[2017-02-16 07:32] LABS: AUTOMATED NEUTROPHIL # 5.5 TH/MM3 (1.8-7.7); BASOPHIL % 0.2 % (0.0-2.0); EOSINOPHIL % 0.1 % (0.0-4.0); HEMATOCRIT 23.5 % (39.0-51.0); LYMPH % 26.3 % (9.0-44.0); LYMPHOCYTE # 2.4 TH/MM3 (1.0-4.8); MEAN CELL VOLUME 89.7 FL (80.0-100.0); MEAN CORPUSCULAR HEMOGLOBIN 30.1 PG (27.0-34.0); MEAN CORPUSCULAR HGB CONC 33.6 % (32.0-36.0); MONO % 12.6 % (0.0-8.0); NEUT % 60.8 % (16.0-70.0); PLATELET COUNT 98 TH/MM3 (150-450); RED BLOOD COUNT 2.62 MIL/MM3 (4.50-5.90); RED CELL DISTRIBUTION WIDTH 20.2 % (11.6-17.2)
[2017-02-16 07:36] LABS: BICARBONATE 26.2 MEQ/L (21.0-32.0); MAGNESIUM 1.7 MG/DL (1.5-2.5); POTASSIUM 4.1 MEQ/L (3.5-5.1)
[2017-02-16 07:38] LABS: HEMO FLAGS AUTO DIFF
[2017-02-16] MEDS: CHOLECALCIFEROL (VIT D3) 5000 UNIT CAP PO SCH (08:48)
[2017-02-16] MEDS: LISINOPRIL 20 MG TAB PO SCH ×2 (08:48→21:30)
[2017-02-16] MEDS: SODIUM CHLORIDE 0.9% FLUSH 5 ML FLUSH IVF SCH ×2 (08:49→21:00)
[2017-02-16] MEDS: ACETAMINOPHEN/HYDROcodone 325 MG/7.5 MG TAB PO PRN ×2 (08:49→15:21)
[2017-02-16] MEDS: ENOXAPARIN SODIUM 30 MG/0.3 ML SYRINGE SQ SCH (08:49)
[2017-02-16 08:55] LABS: BANDS 19 % (0-6); METAMYELOCYTES 1 % (0-1); MYELOCYTES 1 % (0-0); POLYS (SEG NEUTROPHILS) 57 % (16-70); WBC DIFF SAMPLE 100
[2017-02-16 08:56] LABS: PLATELET ESTIMATE SMEAR LOW (NORMAL); SCAN/DIFF FINAL DIFF MANUAL
[2017-02-16 08:57] LABS: PLATELET MORPHOLOGY ENLARGED (NORMAL)
[2017-02-16 08:58] LABS: TEARDROP RBCS 1+ (NORMAL)
[2017-02-16] MEDS ORDERED: cloNIDine HCL 0.1 MG TAB PO PRN (09:00)
[2017-02-16] MEDS ORDERED: ACETAMINOPHEN 325 MG TAB PO PRN (09:15)
--- NOTE | 2017-02-16 09:25 | HHI.PR ---
Subjective Remarks Follow up left femoral neck fracture. Patient seen and examined today, lying in bed comfortably, pleasant, axox3, in no apparent distress. Patient denies any new acute events overnight. Has been tolerating ambulation with walker well. Denies any recent chills, cough, shortness of breath, chest pain, abdominal pain , nausea, vomiting, diarrhea or dysuria. Tmax overnight 101.1. Objective Vitals Vital Signs Date Time Temp Pulse Resp B/P Pulse Ox O2 Delivery O2 Flow Rate FiO2 02/16/17 08:00 101.1 92 15 161/67 94 02/16/17 04:45 99.3 98 17 154/70 99 02/16/17 00:40 99.9 93 18 157/70 99 02/15/17 21:00 85 02/15/17 20:30 100.0 91 18 146/66 97 02/15/17 18:33 97 Nasal Cannula 2.00 02/15/17 18:15 173/74 02/15/17 16:15 99.0 99 18 174/88 97 02/15/17 13:17 93 Nasal Cannula 2.00 02/15/17 11:40 97.8 94 17 169/84 100 02/15/17 11:00 88 15 164/79 99 Nasal Cannula 3 02/15/17 10:45 84 15 163/74 99 Nasal Cannula 3 02/15/17 10:30 83 13 162/70 99 Nasal Cannula 3 02/15/17 10:15 80 19 155/67 99 Nasal Cannula 3 02/15/17 10:00 81 20 152/72 100 Nasal Cannula 3 02/15/17 09:45 82 17 134/60 100 Nasal Cannula 3 02/15/17 09:37 97.8 83 12 146/68 100 Nasal Cannula 4 I/O 02/15/17 02/15/17 02/15/17 02/16/17 02/16/17 02/16/17 07:00 15:00 23:00 07:00 15:00 23:00 Intake Total 0 ml 1240 ml 240 ml 842 ml Output Total 600 ml 470 ml 470 ml Balance 0 ml 640 ml -230 ml 372 ml Intake Oral 0 ml 240 ml 240 ml 240 ml IV Total 602 ml Other 1000 ml Output Urine Total 450 ml 350 ml 450 ml Drainage Total 120 ml 20 ml Estimated Blood Loss 150 ml # Voids 1 0 # Bowel Movements 0 0 0 0 Result Diagram: 02/16/17 0633 02/16/17 0633 Imaging Last Impressions Hip and Pelvis X-Ray 02/15/17 0912 Signed Impressions: Service Date/Time: Wednesday, February 15, 2017 10:22 - CONCLUSION: 1. Status post left hip arthroplasty in normal anatomic alignment without acute fracture. Killian Messina MD Chest X-Ray 02/15/17 0145 Signed Impressions: Service Date/Time: Wednesday, February 15, 2017 02:04 - CONCLUSION: No acute disease. Dominic Real MD Objective Remarks GENERAL: Well-nourished, well-developed patient in NAD, lying in bed comfortably. SKIN: Warm and dry. No rash. HEENT: Normocephalic. Atraumatic. Pupils equal and round. No scleral icterus. No nasal bleeding or discharge. Mucous membranes pink and moist. NECK: Supple. Trachea midline. CARDIOVASCULAR: Regular rate and rhythm. S1, S2 noted. No murmur appreciated. RESPIRATORY: No accessory muscle use. Clear to auscultation. Breath sounds equal bilaterally. GASTROINTESTINAL: Abdomen soft, non-tender, nondistended. Normoactive bowel sounds x4. MUSCULOSKELETAL: Left hip surgical dressing c/d/i, BRAD drain in place, patent, draining serosanguineous fluid. Extremities without clubbing, cyanosis, or edema. NEUROLOGICAL: Awake and alert. No obvious cranial nerve deficits. Motor grossly within normal limits. 5/5 muscle strength in bilateral upper and lower extremities. Normal speech. PSYCHIATRIC: Appropriate mood and affect; insight and judgment normal. Urinary Catheter: No Vascular Central Line Catheter: No A/P Assessment and Plan Mr. Arnold is an 86-year-old male patient with a known history of CKD stage III , CLL, chronic anemia, gout and prior falls who presented to the ED after loosing his balance at home and falling on his left hip. Left hip x-ray was performed and showed a mildly displaced left femoral neck fracture. Patient does admit back in May he sustained another fall, right hip fracture and status post ORIF. Status post left hip hemiarthroplasty - Post op day 1, 02/15/17 - Control pain, [place] 7.5/325 mg PO q3h PRN per pain scale, Morphine 3 mg IV q3h PRN breakthrough pain. - No BM as of yet, Colace 100 mg PO BID and Lactulose added 30 ml PO daily to regimen. - Supplemental O2 as needed. - Postoperative temp noted, TMAX 101.1. Will order acetaminophen 650 mg PO q4h PRN temp >101.1. UA ordered and pending. No leukocytosis noted. CXR upon presentation unremarkable. Follow. - Encourage ambulation as tolerated. Fall precautions. - Dressing changes and drain removal per orthopedic recommendations. Normocytic, normochromic anemia suspect secondary to surgery, chronic anemia and CLL history. - CBC reviewed today, hemoglobin 9.4 --> 7.9. No signs or symptoms of bleeding. Monitor. - Will start on Venofir 100 mg IV x 3 bags. - Follow CBC, H/H. Chronic kidney disease stage III - GFR on presentation 50, actually improved since last admission. Will follow. - Monitor I&O. Hypertension, chronic - Mildly elevated this admission, possibly pain related as well. - Continue lisinopril - Will add clonidine 0.1 mg PO q6h PRN - Monitor BP. Control pain. Vitamin D deficiency - Vit D level 26.2. Continue supplementation. Dyslipidemia, chronic: Continue home medication Gemfibrozil 600 mg PO BIDAC. DVT Prophylaxis: SCDs/ Lovenox 30 mg sq q24 hr. Attending Statement Seen in his bedroom in the presence of PA Miss Winter Atkins also his Nurse Rachel His Hemoglobin is 7.9 started on Venofer, also his platelet count is 98 he is on Lovenox will follow platelet count tomorrow. no complaints per patient, his lungs are clear, his CKD III is stable, Temperature 101F, asked for UA and follow, he had recent CXR performed two days ago and was within normal limits. follow CBC in am tomorrow. follow BMP in am tomorrow Encourage Ambulation, Started on Colace and Lactulose as needed for Constipation. Follow Temperature. All questions answered to the best of my abilities. Uncontrolled blood pressure started on Clonidine 0.1 mg as needed for systolic blood pressure over 160 mm Hg. Urinalysis reviewed with nurse and is pathologic, recommended for Urine Culture , started on Ceftriaxone. Winter Atkins Feb 16, 2017 09:25 [address] Llamas MD Feb 16, 2017 09:32
[2017-02-16] MEDS: SODIUM CHLOR 0.9% 1000 ML INJ 1,000 ML IV SCH (10:10)
[2017-02-16] MEDS: DOCUSATE SODIUM 100 MG CAP PO SCH ×2 (11:20→21:30)
[2017-02-16] MEDS: IRON SUCROSE INJ 100 MG in SODIUM CHLORIDE 0.9% INJ 100 ML IV SCH (11:21)
[2017-02-16 13:02] LABS: BACTERIA, URINE RARE /hpf; BLOOD, URINE MOD (NEG); COMMENT (UR) CULTURE INDICATED; CULTURE IF INDICATED CULTURE INDICATED; GLUCOSE,URINE NEG (NEG); HYALINE CAST, URINE 3 /lpf (RARE); KETONE, URINE NEG (NEG); MUCUS URINE FEW /lpf (OCC); NITRITE,URINE NEG (NEG); PH, URINE 5.5 (5.0-8.5); SQUAMOUS EPITHELIAL CELL URINE 3 /hpf (0-5); URINE COLOR YELLOW (YELLW/STRAW)
[2017-02-16] MEDS ORDERED: cefTRIAXone INJ 1,000 MG in SODIUM CHLORIDE 0.9% INJ 100 ML IV SCH (14:00)
[2017-02-16] MEDS: LACTULOSE SYRUP 20 GM/30 ML CUP PO PRN (21:35)
[2017-02-17] VITALS (11 sets, daily range): BP systolic 130–169; BP diastolic 50–79; PULSE 78–104; RESP 14–18; TEMP 96.9–99.9; O2SAT 96–100
[2017-02-17] MEDS: SODIUM CHLOR 0.9% 1000 ML INJ 1,000 ML IV SCH ×2 (02:50→21:31)
[2017-02-17] MEDS: GEMFIBROZIL 600 MG TAB PO SCH ×2 (05:22→16:09)
[2017-02-17] MEDS: ACETAMINOPHEN/HYDROcodone 325 MG/7.5 MG TAB PO PRN ×3 (05:22→20:55)
--- NOTE | 2017-02-17 07:09 | PD.ORT.PN ---
Subjective Subjective Remarks Resting comfortably with no new complaints Objective Vitals Vital Signs Date Time Temp Pulse Resp B/P Pulse Ox O2 Delivery O2 Flow Rate FiO2 02/17/17 04:35 97.5 94 18 134/60 98 02/17/17 00:35 99.4 98 17 130/60 97 02/16/17 21:00 88 02/16/17 20:55 99.2 100 17 134/63 97 02/16/17 16:21 16 02/16/17 16:00 99.0 96 15 157/64 94 02/16/17 12:00 98.9 84 16 141/56 93 02/16/17 10:11 97 21 02/16/17 08:00 101.1 92 15 161/67 94 I/O 02/16/17 02/16/17 02/16/17 02/17/17 02/17/17 02/17/17 07:00 15:00 23:00 07:00 15:00 23:00 Intake Total 842 ml 240 ml 240 ml Output Total 470 ml 290 ml 10 ml Balance 372 ml -50 ml 240 ml -10 ml Intake Oral 240 ml 240 ml 240 ml IV Total 602 ml Output Urine Total 450 ml 250 ml Drainage Total 20 ml 40 ml 10 ml # Voids 2 2 # Bowel Movements 0 0 Result Diagram: 02/16/17 0633 02/16/17 0633 Imaging Last 24 hours Impressions Chest X-Ray 02/15/17 0145 Signed Impressions: Service Date/Time: Wednesday, February 15, 2017 02:04 - CONCLUSION: No acute disease. Dominic Real MD Hip and Pelvis X-Ray 02/15/17 0000 Signed Impressions: Service Date/Time: Wednesday, February 15, 2017 02:04 - CONCLUSION: Mildly displaced left femoral neck fracture. Dominic Real MD Objective Remarks LLE: Clean dry dressings intact with drain in place. Knee immobilizer in position. Noticeable gout and tophi of foot. NVI RLE: no pain. full motion. noticeable gout and tophi of foot. NVI BUE: no pain with motion. NVI Assessment & Plan Assessment and Plan Left hip hemiarthroplasty POD 2 Physical therapy weightbearing as tolerated with posterior hip precautions Knee immobilizer in place when bed Daily dressing changes Lovenox Incentive spirometry Case management for rehabilitation placement ortho cleared Follow-up Dr. Newberry or PA in 2 weeks Kamron Draper Jr. PA Feb 17, 2017 07:09
[2017-02-17 07:52] LABS: AUTOMATED NEUTROPHIL # 3.7 TH/MM3 (1.8-7.7); BASOPHIL % 0.3 % (0.0-2.0); EOSINOPHIL % 0.4 % (0.0-4.0); LYMPH % 28.4 % (9.0-44.0); LYMPHOCYTE # 1.8 TH/MM3 (1.0-4.8); MEAN CELL VOLUME 91.3 FL (80.0-100.0); MEAN CORPUSCULAR HEMOGLOBIN 30.4 PG (27.0-34.0); MEAN CORPUSCULAR HGB CONC 33.2 % (32.0-36.0); MONO % 13.3 % (0.0-8.0); NEUT % 57.6 % (16.0-70.0); PLATELET COUNT 82 TH/MM3 (150-450); RED BLOOD COUNT 2.16 MIL/MM3 (4.50-5.90); RED CELL DISTRIBUTION WIDTH 19.8 % (11.6-17.2); WHITE BLOOD COUNT 6.4 TH/MM3 (4.0-11.0)
[2017-02-17 08:00] LABS: HEMO FLAGS AUTO DIFF
[2017-02-17 08:02] LABS: HEMATOCRIT 19.7 % (39.0-51.0)
[2017-02-17 08:24] LABS: BICARBONATE 23.9 MEQ/L (21.0-32.0); POTASSIUM 3.9 MEQ/L (3.5-5.1)
[2017-02-17] MEDS ORDERED: ACETAMINOPHEN 325 MG TAB PO PRN (08:30)
[2017-02-17] MEDS ORDERED: SODIUM CHLOR 0.9% 250 ML INJ 250 ML IV ONE (08:30)
[2017-02-17] MEDS ORDERED: diphenhydrAMINE HCL 25 MG CAP PO PRN (08:30)
[2017-02-17] MEDS: DOCUSATE SODIUM 100 MG CAP PO SCH ×2 (08:36→20:55)
[2017-02-17] MEDS: ENOXAPARIN SODIUM 30 MG/0.3 ML SYRINGE SQ SCH (08:36)
[2017-02-17] MEDS: CHOLECALCIFEROL (VIT D3) 5000 UNIT CAP PO SCH (08:36)
[2017-02-17] MEDS: LISINOPRIL 20 MG TAB PO SCH ×2 (08:36→20:55)
[2017-02-17] MEDS: SODIUM CHLORIDE 0.9% FLUSH 5 ML FLUSH IVF SCH ×2 (08:37→21:00)
[2017-02-17] MEDS: IRON SUCROSE INJ 100 MG in SODIUM CHLORIDE 0.9% INJ 100 ML IV SCH (08:37)
[2017-02-17 08:58] LABS: BANDS 13 % (0-6); BASOPHILS 1 % (0-2); METAMYELOCYTES 2 % (0-1); MYELOCYTES 1 % (0-0); NEUTROPHIL # MANUAL DIFF 4.9 TH/MM3 (1.8-7.7); POLYS (SEG NEUTROPHILS) 61 % (16-70); WBC DIFF SAMPLE 100
[2017-02-17 08:59] LABS: OVALOCYTES 1+ (NORMAL); PLATELET ESTIMATE SMEAR LOW (NORMAL); PLATELET MORPHOLOGY NORMAL (NORMAL); SCAN/DIFF FINAL DIFF MANUAL; TEARDROP RBCS 1+ (NORMAL)
--- NOTE | 2017-02-17 08:59 | HHI.PR ---
Subjective Remarks Follow up left femoral neck fracture. Patient seen and examined today. RN at bedside. Patient denies any new acute complaints overnight, slept well, tolerating PO intake. Hemoglobin 6.6 this am, patient asymptomatic, with chronic anemia. Denies any shortness of breath, cough, fever, chills, hematochezia, nausea, vomiting, abdominal pain or dysuria. Objective Vitals Vital Signs Date Time Temp Pulse Resp B/P Pulse Ox O2 Delivery O2 Flow Rate FiO2 02/17/17 08:00 96.9 78 14 137/79 100 02/17/17 04:35 97.5 94 18 134/60 98 02/17/17 00:35 99.4 98 17 130/60 97 02/16/17 21:00 88 02/16/17 20:55 99.2 100 17 134/63 97 02/16/17 16:21 16 02/16/17 16:00 99.0 96 15 157/64 94 02/16/17 12:00 98.9 84 16 141/56 93 02/16/17 10:11 97 21 I/O 02/16/17 02/16/17 02/16/17 02/17/17 02/17/17 02/17/17 07:00 15:00 23:00 07:00 15:00 23:00 Intake Total 842 ml 240 ml 240 ml 240 ml Output Total 470 ml 290 ml 10 ml Balance 372 ml -50 ml 240 ml 230 ml Intake Oral 240 ml 240 ml 240 ml 240 ml IV Total 602 ml Output Urine Total 450 ml 250 ml Drainage Total 20 ml 40 ml 10 ml # Voids 2 2 1 # Bowel Movements 0 0 0 Result Diagram: 02/17/17 0639 02/17/17 0639 Imaging Last Impressions Hip and Pelvis X-Ray 02/15/17 0912 Signed Impressions: Service Date/Time: Wednesday, February 15, 2017 10:22 - CONCLUSION: 1. Status post left hip arthroplasty in normal anatomic alignment without acute fracture. Killian Messina MD Chest X-Ray 02/15/17 0145 Signed Impressions: Service Date/Time: Wednesday, February 15, 2017 02:04 - CONCLUSION: No acute disease. Dominic Real MD Objective Remarks GENERAL: Well-nourished, well-developed patient in NAD, lying in bed comfortably. SKIN: Warm and dry. No rash. HEENT: Normocephalic. Atraumatic. Pupils equal and round. No scleral icterus. No nasal bleeding or discharge. Mucous membranes pink and moist. NECK: Supple. Trachea midline. CARDIOVASCULAR: Regular rate and rhythm. S1, S2 noted. No murmur appreciated. RESPIRATORY: No accessory muscle use. Clear to auscultation. Breath sounds equal bilaterally. GASTROINTESTINAL: Abdomen soft, non-tender, nondistended. Normoactive bowel sounds x4. MUSCULOSKELETAL: Left hip surgical dressing c/d/i, BRAD drain in place, patent, draining serosanguineous fluid. Extremities without clubbing, cyanosis, or edema. NEUROLOGICAL: Awake and alert. No obvious cranial nerve deficits. Motor grossly within normal limits. 5/5 muscle strength in bilateral upper and lower extremities. Normal speech. PSYCHIATRIC: Appropriate mood and affect; insight and judgment normal. A/P Assessment and Plan Mr. Arnold is an 86-year-old male patient with a known history of CKD stage III , CLL, chronic anemia, gout and prior falls who presented to the ED after loosing his balance at home and falling on his left hip. Left hip x-ray was performed and showed a mildly displaced left femoral neck fracture. Patient does admit back in May he sustained another fall, right hip fracture and status post ORIF. Status post left hip hemiarthroplasty - Post op day 2, 02/15/17 - Control pain, [place] 7.5/325 mg PO q3h PRN per pain scale, Morphine 3 mg IV q3h PRN breakthrough pain. Pain well controlled at this time. - No BM as of yet, Colace 100 mg PO BID and Lactulose added 30 ml PO daily to regimen. - Supplemental O2 as needed. - Afebrile overnight. Acetaminophen 650 mg PO q4h PRN temp >101.1. UA reviewed showing large amount of leukocyte esterase and culture pending. Started Rocephin 1 g IV q24hr. Follow. No leukocytosis noted. CXR upon presentation unremarkable. - Encourage ambulation as tolerated. Fall precautions. - Dressing changes and drain removal per orthopedic recommendations. Normocytic, normochromic anemia suspect secondary to surgery, chronic anemia and CLL history. Thrombocytopenia - CBC reviewed today, hemoglobin 9.4 --> 7.9 --> 6.6 today 02/17/17. No signs or symptoms of bleeding. - Continue Venofir 100 mg IV x 3 bags. - Transfuse 2 unit PRBC today. - Platelets trending down since presentation 134 --> 98 --> 82. Spoke to orthopedic team addressing the issue and the unlikely possibility of HIIT. Requested to possibly restart on his home Xarelto. Recommendations from ortho were to hold Lovenox for one day but at this time it is advised to hold off of restarting Xarelto as of yet until we are further out from surgery. Will hold for tomorrow 02/18/17, restart 02/19/17 and continue to monitor. - Follow CBC, H/H in am. Chronic kidney disease stage III - GFR on presentation 50 --> 44, actually improved since last admission. Creatinine 1.51. - Monitor I&O. Hypertension, chronic - Mildly elevated this admission, possibly pain related as well. Well controlled at this time. - Continue lisinopril. - Clonidine 0.1 mg PO q6h PRN - Monitor BP. Control pain. Vitamin D deficiency - Vit D level 26.2. Continue supplementation. Dyslipidemia, chronic: Continue home medication Gemfibrozil 600 mg PO BIDAC. DVT Prophylaxis: SCDs/ Lovenox 30 mg sq q24 hr. Attending Statement Patient seen in her bedroom, discussed with PA Mrs. Winter Wilbert evaluated and read chart, has stable vital signs and Laboratory evaluated and also within normal limits, following closely his Platelet count he is been on Heparin. has Hemoglobin 6.6 asked recommended for blood transfusion. Winter Atkins Feb 17, 2017 08:[address] Llamas MD Feb 17, 2017 16:29
[2017-02-17] MEDS ORDERED: FUROSEMIDE 20 MG/2 ML VIAL IV ONE (10:00)
--- NOTE | 2017-02-17 19:19 | RADRPT ---
EXAM DATE/TIME: 02/17/2017 19:00 [facility] COMPARISON: CT BRAIN W/O CONTRAST, June 06, 2016, 19:04. INDICATIONS : Trauma, fall. RADIATION DOSE: 41.41 CTDIvol (mGy) MEDICAL HISTORY : Hypertension. Leukemia. SURGICAL HISTORY : None. ENCOUNTER: Initial ACUITY: 3 days PAIN SCALE: 4/10 LOCATION: cranial TECHNIQUE: Multiple contiguous axial images were obtained of the head. Using automated exposure control and adj ustment of the mA and/or kV according to patient size, radiation dose was kept as low as reasonably a chievable to obtain optimal diagnostic quality images. DICOM format image data is available electro nically for review and comparison. FINDINGS: CEREBRUM: The ventricles are normal for age. No evidence of midline shift, mass lesion, hemorrhage or acute in farction. No extra-axial fluid collections are seen. POSTERIOR FOSSA: The cerebellum and brainstem are intact. The 4th ventricle is midline. The cerebellopontine angle i s unremarkable. EXTRACRANIAL: The visualized portion of the orbits is intact. SKULL: The calvaria is intact. No evidence of skull fracture. CONCLUSION: Negative for an acute process. Alexis Hawley MD FACR on February 17, 2017 at 19:16 Board Certified Radiologist. This report was verified electronically.
[2017-02-17] MEDS ORDERED: cefTRIAXone INJ 1,000 MG in SODIUM CHLORIDE 0.9% INJ 100 ML IV SCH (19:45)
[2017-02-17] MEDS: LACTULOSE SYRUP 20 GM/30 ML CUP PO PRN (20:55)
[2017-02-17] MEDS: cefTRIAXone INJ 1,000 MG in SODIUM CHLORIDE 0.9% INJ 100 ML IV SCH (21:29)
[2017-02-18] VITALS (7 sets, daily range): BP systolic 131–156; BP diastolic 60–72; PULSE 83–98; RESP 16–18; TEMP 98.2–99.4; O2SAT 96–98
[2017-02-18] MEDS: ACETAMINOPHEN/HYDROcodone 325 MG/7.5 MG TAB PO PRN ×2 (06:11→14:41)
[2017-02-18] MEDS: GEMFIBROZIL 600 MG TAB PO SCH ×2 (06:11→16:44)
[2017-02-18 06:54] LABS: AUTOMATED NEUTROPHIL # 3.5 TH/MM3 (1.8-7.7); BASOPHIL % 0.3 % (0.0-2.0); EOSINOPHIL % 0.6 % (0.0-4.0); HEMATOCRIT 23.3 % (39.0-51.0); LYMPH % 38.4 % (9.0-44.0); LYMPHOCYTE # 2.5 TH/MM3 (1.0-4.8); MEAN CELL VOLUME 86.3 FL (80.0-100.0); MEAN CORPUSCULAR HEMOGLOBIN 28.7 PG (27.0-34.0); MEAN CORPUSCULAR HGB CONC 33.2 % (32.0-36.0); MONO % 7.1 % (0.0-8.0); NEUT % 53.6 % (16.0-70.0); PLATELET COUNT 71 TH/MM3 (150-450); RED CELL DISTRIBUTION WIDTH 21.4 % (11.6-17.2); WHITE BLOOD COUNT 6.4 TH/MM3 (4.0-11.0)
[2017-02-18 07:04] LABS: HEMO FLAGS AUTO DIFF
[2017-02-18 07:16] LABS: BICARBONATE 24.7 MEQ/L (21.0-32.0)
[2017-02-18 08:14] LABS: BANDS 2 % (0-6); EOSINOPHILS 2 % (0-4); NEUTROPHIL # MANUAL DIFF 3.9 TH/MM3 (1.8-7.7); POLYS (SEG NEUTROPHILS) 59 % (16-70); WBC DIFF SAMPLE 100
[2017-02-18 08:16] LABS: KERATOCYTES OCC (NORMAL); PLATELET ESTIMATE SMEAR LOW (NORMAL); PLATELET MORPHOLOGY NORMAL (NORMAL); SCAN/DIFF FINAL DIFF MANUAL; SMUDGE CELLS PRESENT PRESENT
[2017-02-18] MEDS: DOCUSATE SODIUM 100 MG CAP PO SCH ×2 (08:30→20:54)
[2017-02-18] MEDS: LISINOPRIL 20 MG TAB PO SCH ×2 (08:30→20:54)
[2017-02-18] MEDS: CHOLECALCIFEROL (VIT D3) 5000 UNIT CAP PO SCH (08:30)
--- NOTE | 2017-02-18 08:44 | PD.ORT.PN ---
Subjective Subjective Remarks Patient appears comfortable. No complaints Objective Vitals Vital Signs Date Time Temp Pulse Resp B/P Pulse Ox O2 Delivery O2 Flow Rate FiO2 02/18/17 04:30 98.3 90 18 156/69 96 02/18/17 00:00 99.0 98 16 150/72 96 02/17/17 21:35 99.0 92 18 162/72 96 02/17/17 21:20 98.8 98 17 169/74 96 02/17/17 21:00 104 02/17/17 18:00 99.9 94 18 157/61 98 02/17/17 16:00 99.8 93 17 149/50 99 02/17/17 14:15 99.6 89 18 136/50 98 02/17/17 14:15 99.6 89 18 136/50 98 02/17/17 14:04 17 02/17/17 14:00 99.6 92 16 154/58 99 02/17/17 14:00 99.6 92 16 154/58 99 02/17/17 12:00 99.4 97 14 158/61 100 I/O 02/17/17 02/17/17 02/17/17 02/18/17 02/18/17 02/18/17 07:00 15:00 23:00 07:00 15:00 23:00 Intake Total 240 ml 480 ml 480 ml 240 ml Output Total 10 ml 250 ml 700 ml Balance 230 ml 480 ml 230 ml -460 ml Intake Oral 240 ml 480 ml 480 ml 240 ml Output Urine Total 250 ml 700 ml Drainage Total 10 ml # Voids 1 2 1 # Bowel Movements 0 0 0 Result Diagram: 02/18/17 0531 02/18/17 0531 Imaging Last 24 hours Impressions Chest X-Ray 02/15/17 0145 Signed Impressions: Service Date/Time: Wednesday, February 15, 2017 02:04 - CONCLUSION: No acute disease. Dominic Real MD Hip and Pelvis X-Ray 02/15/17 0000 Signed Impressions: Service Date/Time: Wednesday, February 15, 2017 02:04 - CONCLUSION: Mildly displaced left femoral neck fracture. Dominic Real MD Objective Remarks Left hip wound recently changed with moderate drainage, bloody. Leg lengths equal. No calf tenderness. Negative Homans sign. Neuro normal leg Assessment & Plan Ortho Post Op Day #: 3 Problem List: Assessment and Plan Left hip hemiarthroplasty POD 3 PLAN: Physical therapy weightbearing as tolerated with posterior hip precautions Knee immobilizer in place when bed Daily dressing changes Lovenox on hold starting yesterday per medical due to bleeding Incentive spirometry Case management for rehabilitation placement ortho cleared Follow-up Dr. Newberry or PA in 2 weeks Platelet count stabilized at 135. Will recheck coags even though they were normal on 02/15/17. Hold on anticoagulation at this time due to bleeding. Kit Carmona MD Feb 18, 2017 08:44
[2017-02-18] MEDS: SODIUM CHLORIDE 0.9% FLUSH 5 ML FLUSH IVF SCH ×2 (09:00→20:55)
--- NOTE | 2017-02-18 09:07 | HHI.PR ---
Subjective Remarks This is a pleasant 86 y/o male with status post fall, with secondary left Femoral neck fracture status post Left Hip Hemiarthroplasty 02/15/17 by doctor Edgard Newberry. patient stable tolerating diet, Hemoglobin yesterday was 6.6 and given two units of PRBCs, asymptomatic, the Lovenox was removed due to worsening thrombocytopenia and switch to Xarelto today, I was informed by nurse the patient is bleeding will place on Hold Xarelto and follow H and H closely, already seen by Orthopedic surgery and recommended to hold anticoagulation, will try to continue DVT prophylaxis but will hold the medicines for tomorrow, and follow H and H may need new blood transfusion. Objective Vital Signs Date Time Temp Pulse Resp B/P Pulse Ox O2 Delivery O2 Flow Rate FiO2 02/18/17 07:38 98.2 93 18 131/60 98 02/18/17 04:30 98.3 90 18 156/69 96 02/18/17 00:00 99.0 98 16 150/72 96 02/17/17 21:35 99.0 92 18 162/72 96 02/17/17 21:20 98.8 98 17 169/74 96 02/17/17 21:00 104 02/17/17 18:00 99.9 94 18 157/61 98 02/17/17 16:00 99.8 93 17 149/50 99 02/17/17 14:15 99.6 89 18 136/50 98 02/17/17 14:15 99.6 89 18 136/50 98 02/17/17 14:04 17 02/17/17 14:00 99.6 92 16 154/58 99 02/17/17 14:00 99.6 92 16 154/58 99 02/17/17 12:00 99.4 97 14 158/61 100 I/O 02/17/17 02/17/17 02/17/17 02/18/17 02/18/17 02/18/17 07:00 15:00 23:00 07:00 15:00 23:00 Intake Total 240 ml 480 ml 480 ml 240 ml Output Total 10 ml 250 ml 700 ml Balance 230 ml 480 ml 230 ml -460 ml Intake Oral 240 ml 480 ml 480 ml 240 ml Output Urine Total 250 ml 700 ml Drainage Total 10 ml # Voids 1 2 1 # Bowel Movements 0 0 0 Result Diagram: 02/18/17 0531 02/18/17 0531 Imaging Last Impressions Head CT 02/17/17 0000 Signed Impressions: Service Date/Time: Friday, February 17, 2017 19:00 - CONCLUSION: Negative for an acute process. Alexis Hawley MD FACR Hip and Pelvis X-Ray 02/15/17 0912 Signed Impressions: Service Date/Time: Wednesday, February 15, 2017 10:22 - CONCLUSION: 1. Status post left hip arthroplasty in normal anatomic alignment without acute fracture. Killian Messina MD Chest X-Ray 02/15/17 0145 Signed Impressions: Service Date/Time: Wednesday, February 15, 2017 02:04 - CONCLUSION: No acute disease. Dominic Real MD Procedures Left Hip Hemiarthroplasty 02/15/17 Other Results Laboratory Tests Test 02/15/17 02/16/17 02/16/17 02/17/17 01:30 06:33 12:15 06:39 Acanthocytes OCC Prothrombin Time 10.7 SEC Prothromb Time International 1.0 RATIO Ratio Activated Partial 24.5 SEC Thromboplast Time Total Bilirubin 0.4 MG/DL Aspartate Amino Transf 18 U/L (AST/SGOT) Alanine Aminotransferase 21 U/L (ALT/SGPT) Alkaline Phosphatase 88 U/L Total Protein 7.3 GM/DL Albumin 4.2 GM/DL 25-Hydroxy Vitamin D Total 26.2 ng/ML Phosphorus Level 3.1 MG/DL Magnesium Level 1.7 MG/DL Urine Color YELLOW Urine Turbidity HAZY Urine pH 5.5 Urine Specific [place] 1.019 Urine Protein 30 mg/dL Urine Glucose (UA) NEG mg/dL Urine Ketones NEG mg/dL Urine Occult Blood MOD Urine Nitrite NEG Urine Bilirubin NEG Urine Urobilinogen LESS THAN 2.0 MG/DL Urine Leukocyte Esterase LARGE Urine RBC 76 /hpf Urine WBC 85 /hpf Urine Squamous Epithelial 3 /hpf Cells Urine Bacteria RARE /hpf Urine Hyaline Casts 3 /lpf Urine Mucus FEW /lpf Microscopic Urinalysis Comment CULTURE INDICATED Basophils % 1 % Metamyelocytes 2 % Myelocytes 1 % Tear Drop Cells 1+ Ovalocytes 1+ Test 02/17/17 02/18/17 10:47 05:31 Blood Type A POSITIVE Antibody Screen NEGATIVE Crossmatch Leukocyte-Reduced Red Blood Cells Blood Bank Comment White Blood Count 6.4 TH/MM3 Red Blood Count 2.70 MIL/MM3 Hemoglobin 7.7 GM/DL Hematocrit 23.3 % Mean Corpuscular Volume 86.3 FL Mean Corpuscular Hemoglobin 28.7 PG Mean Corpuscular Hemoglobin 33.2 % Concent Red Cell Distribution Width 21.4 % Platelet Count 71 TH/MM3 Mean Platelet Volume 10.2 FL Neutrophils (%) (Auto) 53.6 % Lymphocytes (%) (Auto) 38.4 % Monocytes (%) (Auto) 7.1 % Eosinophils (%) (Auto) 0.6 % Basophils (%) (Auto) 0.3 % Neutrophils # (Auto) 3.5 TH/MM3 Lymphocytes # (Auto) 2.5 TH/MM3 Monocytes # (Auto) 0.5 TH/MM3 Eosinophils # (Auto) 0.0 TH/MM3 Basophils # (Auto) 0.0 TH/MM3 CBC Comment AUTO DIFF Differential Total Cells 100 Counted Neutrophils % (Manual) 59 % Band Neutrophils % 2 % Lymphocytes % 30 % Monocytes % 7 % Eosinophils % 2 % Neutrophils # (Manual) 3.9 TH/MM3 Differential Comment FINAL DIFF MANUAL Smudge Cells PRESENT Platelet Estimate LOW Platelet Morphology Comment NORMAL Keratocytes OCC Sodium Level 138 MEQ/L Potassium Level 4.0 MEQ/L Chloride Level 105 MEQ/L Carbon Dioxide Level 24.7 MEQ/L Anion Gap 8 MEQ/L Blood Urea Nitrogen 28 MG/DL Creatinine 1.43 MG/DL Estimat Glomerular Filtration 47 ML/MIN Rate Random Glucose 123 MG/DL Calcium Level 7.9 MG/DL Objective Remarks GENERAL: Well-nourished, well-developed patient in NAD, lying in bed comfortably. SKIN: Warm and dry. No rash. HEENT: Normocephalic. Atraumatic. Pupils equal and round. No scleral icterus. No nasal bleeding or discharge. Mucous membranes pink and moist. NECK: Supple. Trachea midline. CARDIOVASCULAR: Regular rate and rhythm. S1, S2 noted. No murmur appreciated. RESPIRATORY: No accessory muscle use. Clear to auscultation. Breath sounds equal bilaterally. GASTROINTESTINAL: Abdomen soft, non-tender, nondistended. Normoactive bowel sounds x4. MUSCULOSKELETAL: Left hip surgical dressing c/d/i, BRAD drain in place, patent, draining serosanguineous fluid. Extremities without clubbing, cyanosis, or edema. NEUROLOGICAL: Awake and alert. No obvious cranial nerve deficits. Motor grossly within normal limits. 5/5 muscle strength in bilateral upper and lower extremities. Normal speech. PSYCHIATRIC: Appropriate mood and affect; insight and judgment normal. Medications and IVs Current Medications Medications (Trade) Dose Ordered Sig/Miguel A Route Start Time Stop Time Status Last Admin (Narcan Inj) 0.4 mg UNSCH PRN IV 02/15/17 03:30 (Vasotec Inj) 2.5 mg Q6H PRN IV PUSH 02/15/17 06:45 02/15/17 07:14 (Lopid) 600 mg BIDAC PO 02/15/17 07:00 02/18/17 06:11 (Prinivil) 20 mg BID PO 02/15/17 09:00 02/18/17 08:30 (Vasotec Inj) 1.25 mg Q6H PRN IV PUSH 02/15/17 08:00 (NS Flush) 2 ml UNSCH PRN IVF 02/15/17 09:15 (NS Flush) 2 ml BID IVF 02/15/17 21:00 (Lovenox Inj) 30 mg Q24H SQ 02/16/17 09:00 Hold 02/17/17 08:36 ([place] 7.5-325 Mg) 1 tab Q3H PRN PO 02/15/17 09:15 02/18/17 06:11 (Morphine Inj) 3 mg Q3H PRN IV PUSH 02/15/17 09:15 Cholecalciferol 5000 units 5,000 units DAILY PO 02/16/17 09:00 02/18/17 08:30 Sodium Chloride 1,000 ml @ 60 mls/hr [id number] IV 02/15/17 17:30 02/15/17 17:30 (Venofer Inj/NS Inj) 105 ml @ 105 mls/hr Q24H IV 02/16/17 10:00 02/18/17 10:59 02/17/17 08:37 (Colace) 100 mg BID PO 02/16/17 09:00 02/18/17 08:30 (Lactulose Liq) 30 ml DAILY PRN PO 02/16/17 08:45 02/16/17 21:35 (Catapres) 0.1 mg Q6H PRN PO 02/16/17 09:00 Acetaminophen 650 mg 650 mg Q4H PRN PO 02/16/17 09:15 (Rocephin Inj/NS Inj) 100 ml @ 200 mls/hr Q24H IV 02/17/17 21:00 02/17/17 21:29 A/P Assessment and Plan Mr. Arnold is an 86-year-old male patient with a known history of CKD stage III , CLL, chronic anemia, gout and prior falls who presented to the ED after loosing his balance at home and falling on his left hip. Left hip x-ray was performed and showed a mildly displaced left femoral neck fracture. Patient does admit back in May he sustained another fall, right hip fracture and status post ORIF. Status post left hip hemiarthroplasty 02/15/17 - Control pain, [place] 7.5/325 mg PO q3h PRN per pain scale, Morphine 3 mg IV q3h PRN breakthrough pain. Pain well controlled at this time. - No BM as of yet, Colace 100 mg PO BID and Lactulose added 30 ml PO daily to regimen. - Supplemental O2 as needed. - Afebrile now, no leukocytosis, q24hr. - Encourage ambulation as tolerated. Fall precautions. - has new bleeding from Surgical Area, received Xarelto today, as per Orthopedic Surgery to avoid DVT prophylaxis he is not bleeding today, will try to continue DVT prophylaxis as soon as he is not bleeding due to high risk for thrombosis due to his basal pathology CLL plus recent surgery. Normocytic, normochromic anemia suspect secondary to surgery, chronic anemia and CLL history. Thrombocytopenia/Anemia for the patient is normal to have his Hemoglobin low 8s. - received Venofer and blood transfusion Hemoglobin 7.7 following. new H and H now. Chronic kidney disease stage III - GFR on presentation 50 --> 44, actually improved since last admission. Creatinine 1.51. - Monitor I&O. Hypertension, chronic - controlled. Vitamin D deficiency - Vit D level 26.2. Continue supplementation. Dyslipidemia, chronic: Continue home medication Gemfibrozil 600 mg PO BIDAC. DVT Prophylaxis: SCDs and Xarelto following closely H and H will try to continue DVT prophylaxis he had bleeding from his surgical site, but now no bleeding anymore will follow closely. Discharge Planning Not yet cleared for discharge. Lane Llamas MD Feb 18, 2017 09:07
[2017-02-18] MEDS ORDERED: RIVAROXABAN 10 MG TAB PO SCH (09:30)
[2017-02-18] MEDS: IRON SUCROSE INJ 100 MG in SODIUM CHLORIDE 0.9% INJ 100 ML IV SCH (10:00)
[2017-02-18 10:29] LABS: APTT (PATIENT) 34.8 SEC (24.3-30.1); PROTHROMBIN TIME - PATIENT 11.1 SEC (9.8-11.6)
[2017-02-18 16:20] LABS: HEMATOCRIT 23.6 % (39.0-51.0)
[2017-02-18] MEDS: cefTRIAXone INJ 1,000 MG in SODIUM CHLORIDE 0.9% INJ 100 ML IV SCH (20:54)
[2017-02-19 03:19] VITALS: BP 143/65; PULSE 86; RESP 17; TEMP 99.6; O2SAT 96
[2017-02-19 07:23] VITALS: BP 136/62; PULSE 84; RESP 25; TEMP 98.2; O2SAT 98
--- NOTE | 2017-02-19 08:49 | PD.ORT.PN ---
Subjective Subjective Remarks Patient appears comfortable. No complaints. Dressing been changed and no drainage on new dressing Objective Vitals Vital Signs Date Time Temp Pulse Resp B/P Pulse Ox O2 Delivery O2 Flow Rate FiO2 02/19/17 03:19 99.6 86 17 143/65 96 02/18/17 23:16 99.4 83 18 152/68 97 02/18/17 19:32 98.7 89 18 139/62 97 02/18/17 16:00 99.0 90 17 140/65 97 02/18/17 11:40 98.2 89 18 155/66 97 I/O 02/18/17 02/18/17 02/18/17 02/19/17 02/19/17 02/19/17 07:00 15:00 23:00 07:00 15:00 23:00 Intake Total 240 ml 720 ml 480 ml 360 ml Output Total 700 ml 250 ml Balance -460 ml 720 ml 480 ml 110 ml Intake Oral 240 ml 720 ml 480 ml 360 ml Output Urine Total 700 ml 250 ml # Voids 2 4 # Bowel Movements 0 0 0 0 Result Diagram: 02/18/17 1513 02/18/17 0531 Other Results Laboratory Tests Test 02/18/17 09:34 Prothrombin Time 11.1 SEC (9.8-11.6) Prothromb Time International 1.0 RATIO Ratio Imaging Last 24 hours Impressions Chest X-Ray 02/15/17 0145 Signed Impressions: Service Date/Time: Wednesday, February 15, 2017 02:04 - CONCLUSION: No acute disease. Dominic Real MD Hip and Pelvis X-Ray 02/15/17 0000 Signed Impressions: Service Date/Time: Wednesday, February 15, 2017 02:04 - CONCLUSION: Mildly displaced left femoral neck fracture. Dominic Real MD Objective Remarks Dressing dry. Leg lengths equal No calf tenderness. Negative Homans sign. Neuro normal leg Assessment & Plan Ortho Post Op Day #: 4 Problem List: Assessment and Plan Left hip hemiarthroplasty POD 4 PLAN: Physical therapy weightbearing as tolerated with posterior hip precautions Knee immobilizer in place when bed Daily dressing changes Lovenox on hold. Xarelto started by medical Incentive spirometry Case management for rehabilitation placement Follow-up Dr. Newberry or [place] in 2 weeks Platelet count 71,000 yesterday. Platelets pending today If platelet count satisfactory, orthopedically cleared for discharge Kit Carmona MD Feb 19, 2017 08:49
[2017-02-19] MEDS: SODIUM CHLORIDE 0.9% FLUSH 5 ML FLUSH IVF SCH (09:00)
--- NOTE | 2017-02-19 09:06 | HHI.PR ---
Subjective Remarks This is a pleasant 86 y/o male with status post fall, with secondary left Femoral neck fracture status post Left Hip Hemiarthroplasty 02/15/17 by doctor Edgard Newberry. patient stable tolerating diet, Hemoglobin yesterday was 6.6 and given two units of PRBCs, asymptomatic, the Lovenox was removed due to worsening thrombocytopenia and switch to Xarelto today, I was informed by nurse the patient is bleeding will place on Hold Xarelto and follow H and H closely, already seen by Orthopedic surgery and recommended to hold anticoagulation, will try to continue DVT prophylaxis but will hold the medicines for tomorrow, and follow H and H may need new blood transfusion. 02/19: Patient stable seen in his bedroom, discussed with nurse, he has Constipation will need to get a BM before transfer to [facility], he has no bleeding, his new platelet count is 95 ready to go to [facility], no complaint. Objective Vital Signs Date Time Temp Pulse Resp B/P Pulse Ox O2 Delivery O2 Flow Rate FiO2 02/19/17 07:23 98.2 84 25 136/62 98 02/19/17 03:19 99.6 86 17 143/65 96 02/18/17 23:16 99.4 83 18 152/68 97 02/18/17 19:32 98.7 89 18 139/62 97 02/18/17 16:00 99.0 90 17 140/65 97 02/18/17 11:40 98.2 89 18 155/66 97 I/O 02/18/17 02/18/17 02/18/17 02/19/17 02/19/17 02/19/17 07:00 15:00 23:00 07:00 15:00 23:00 Intake Total 240 ml 720 ml 480 ml 360 ml Output Total 700 ml 250 ml Balance -460 ml 720 ml 480 ml 110 ml Intake Oral 240 ml 720 ml 480 ml 360 ml Output Urine Total 700 ml 250 ml # Voids 2 4 # Bowel Movements 0 0 0 0 Result Diagram: 02/19/17 0830 02/18/17 0531 Imaging Last Impressions Head CT 02/17/17 0000 Signed Impressions: Service Date/Time: Friday, February 17, 2017 19:00 - CONCLUSION: Negative for an acute process. Alexis Hawley MD FACR Hip and Pelvis X-Ray 02/15/17 0912 Signed Impressions: Service Date/Time: Wednesday, February 15, 2017 10:22 - CONCLUSION: 1. Status post left hip arthroplasty in normal anatomic alignment without acute fracture. Killian Messina MD Chest X-Ray 02/15/17 0145 Signed Impressions: Service Date/Time: Wednesday, February 15, 2017 02:04 - CONCLUSION: No acute disease. Dominic Real MD Procedures Left Hip Hemiarthroplasty 02/15/17 Other Results Laboratory Tests Test 02/15/17 02/16/17 02/16/17 02/17/17 01:30 06:33 12:15 06:39 Acanthocytes OCC Total Bilirubin 0.4 MG/DL Aspartate Amino Transf 18 U/L (AST/SGOT) Alanine Aminotransferase 21 U/L (ALT/SGPT) Alkaline Phosphatase 88 U/L Total Protein 7.3 GM/DL Albumin 4.2 GM/DL 25-Hydroxy Vitamin D Total 26.2 ng/ML Phosphorus Level 3.1 MG/DL Magnesium Level 1.7 MG/DL Urine Color YELLOW Urine Turbidity HAZY Urine pH 5.5 Urine Specific [place] 1.019 Urine Protein 30 mg/dL Urine Glucose (UA) NEG mg/dL Urine Ketones NEG mg/dL Urine Occult Blood MOD Urine Nitrite NEG Urine Bilirubin NEG Urine Urobilinogen LESS THAN 2.0 MG/DL Urine Leukocyte Esterase LARGE Urine RBC 76 /hpf Urine WBC 85 /hpf Urine Squamous Epithelial 3 /hpf Cells Urine Bacteria RARE /hpf Urine Hyaline Casts 3 /lpf Urine Mucus FEW /lpf Microscopic Urinalysis Comment CULTURE INDICATED Basophils % 1 % Metamyelocytes 2 % Myelocytes 1 % Tear Drop Cells 1+ Ovalocytes 1+ Test 02/17/17 02/18/17 02/18/17 02/18/17 10:47 05:31 09:34 15:13 Blood Type A POSITIVE Antibody Screen NEGATIVE Crossmatch Leukocyte-Reduced Red Blood Cells Blood Bank Comment White Blood Count 6.4 TH/MM3 Red Blood Count 2.70 MIL/MM3 Mean Corpuscular Volume 86.3 FL Mean Corpuscular Hemoglobin 28.7 PG Mean Corpuscular Hemoglobin 33.2 % Concent Red Cell Distribution Width 21.4 % Mean Platelet Volume 10.2 FL Neutrophils (%) (Auto) 53.6 % Lymphocytes (%) (Auto) 38.4 % Monocytes (%) (Auto) 7.1 % Eosinophils (%) (Auto) 0.6 % Basophils (%) (Auto) 0.3 % Neutrophils # (Auto) 3.5 TH/MM3 Lymphocytes # (Auto) 2.5 TH/MM3 Monocytes # (Auto) 0.5 TH/MM3 Eosinophils # (Auto) 0.0 TH/MM3 Basophils # (Auto) 0.0 TH/MM3 CBC Comment AUTO DIFF Differential Total Cells 100 Counted Neutrophils % (Manual) 59 % Band Neutrophils % 2 % Lymphocytes % 30 % Monocytes % 7 % Eosinophils % 2 % Neutrophils # (Manual) 3.9 TH/MM3 Differential Comment FINAL DIFF MANUAL Smudge Cells PRESENT Platelet Estimate LOW Platelet Morphology Comment NORMAL Keratocytes OCC Sodium Level 138 MEQ/L Potassium Level 4.0 MEQ/L Chloride Level 105 MEQ/L Carbon Dioxide Level 24.7 MEQ/L Anion Gap 8 MEQ/L Blood Urea Nitrogen 28 MG/DL Creatinine 1.43 MG/DL Estimat Glomerular Filtration 47 ML/MIN Rate Random Glucose 123 MG/DL Calcium Level 7.9 MG/DL Prothrombin Time 11.1 SEC Prothromb Time International 1.0 RATIO Ratio Activated Partial 34.8 SEC Thromboplast Time Hemoglobin 7.8 GM/DL Hematocrit 23.6 % Test 02/19/17 08:30 Platelet Count 95 TH/MM3 Objective Remarks GENERAL: Well-nourished, well-developed patient in NAD, lying in bed comfortably. SKIN: Warm and dry. No rash. HEENT: Normocephalic. Atraumatic. Pupils equal and round. No scleral icterus. No nasal bleeding or discharge. Mucous membranes pink and moist. NECK: Supple. Trachea midline. CARDIOVASCULAR: Regular rate and rhythm. S1, S2 noted. No murmur appreciated. RESPIRATORY: No accessory muscle use. Clear to auscultation. Breath sounds equal bilaterally. GASTROINTESTINAL: Abdomen soft, non-tender, nondistended. Normoactive bowel sounds x4. MUSCULOSKELETAL: Left hip surgical dressing c/d/i, BRAD drain in place, patent, draining serosanguineous fluid. Extremities without clubbing, cyanosis, or edema. NEUROLOGICAL: Awake and alert. No obvious cranial nerve deficits. Motor grossly within normal limits. 5/5 muscle strength in bilateral upper and lower extremities. Normal speech. PSYCHIATRIC: Appropriate mood and affect; insight and judgment normal. Medications and IVs Current Medications Medications (Trade) Dose Ordered Sig/Miguel A Route Start Time Stop Time Status Last Admin (Narcan Inj) 0.4 mg UNSCH PRN IV 02/15/17 03:30 (Vasotec Inj) 2.5 mg Q6H PRN IV PUSH 02/15/17 06:45 02/15/17 07:14 (Lopid) 600 mg BIDAC PO 02/15/17 07:00 02/18/17 16:44 (Prinivil) 20 mg BID PO 02/15/17 09:00 02/18/17 20:54 (Vasotec Inj) 1.25 mg Q6H PRN IV PUSH 02/15/17 08:00 (NS Flush) 2 ml UNSCH PRN IVF 02/15/17 09:15 (NS Flush) 2 ml BID IVF 02/15/17 21:00 02/18/17 20:55 (Lovenox Inj) 30 mg Q24H SQ 02/16/17 09:00 02/17/17 08:36 ([place] 7.5-325 Mg) 1 tab Q3H PRN PO 02/15/17 09:15 02/18/17 14:41 (Morphine Inj) 3 mg Q3H PRN IV PUSH 02/15/17 09:15 (Vitamin D3) 5,000 units DAILY PO 02/16/17 09:00 02/18/17 08:30 (Colace) 100 mg BID PO 02/16/17 09:00 02/18/17 20:54 (Lactulose Liq) 30 ml DAILY PRN PO 02/16/17 08:45 02/16/17 21:35 (Catapres) 0.1 mg Q6H PRN PO 02/16/17 09:00 Acetaminophen 650 mg 650 mg Q4H PRN PO 02/16/17 09:15 (Rocephin Inj/NS Inj) 100 ml @ 200 mls/hr Q24H IV 02/17/17 21:00 02/18/17 20:54 (Xarelto) 10 mg DAILY PO 02/18/17 09:30 Hold A/P Assessment and Plan Mr. Arnold is an 86-year-old male patient with a known history of CKD stage III , CLL, chronic anemia, gout and prior falls who presented to the ED after loosing his balance at home and falling on his left hip. Left hip x-ray was performed and showed a mildly displaced left femoral neck fracture. Patient does admit back in May he sustained another fall, right hip fracture and status post ORIF. Status post left hip hemiarthroplasty 02/15/17 - Control pain, [place] 7.5/325 mg PO q3h PRN per pain scale, Morphine 3 mg IV q3h PRN breakthrough pain. Pain well controlled at this time. - No BM as of yet, Colace 100 mg PO BID and Lactulose added 30 ml PO daily to regimen. - Supplemental O2 as needed. - Afebrile now, no leukocytosis, q24hr. - Encourage ambulation as tolerated. Fall precautions. - has new bleeding from Surgical Area, received Xarelto today, as per Orthopedic Surgery to avoid DVT prophylaxis he is not bleeding today, will try to continue DVT prophylaxis as soon as he is not bleeding due to high risk for thrombosis due to his basal pathology CLL plus recent surgery. okay from Orthopedic Surgery to go to [facility]. Normocytic, normochromic anemia suspect secondary to surgery, chronic anemia and CLL history. Thrombocytopenia/Anemia for the patient is normal to have his Hemoglobin low 8s. - received Venofer and blood transfusion Hemoglobin 7.8 Platelet count today 95 okay to transfer to [facility] Chronic kidney disease stage III - GFR on presentation 50 --> 44, actually improved since last admission. Creatinine 1.51. - Monitor I&O. Hypertension, chronic - controlled. Vitamin D deficiency - Vit D level 26.2. Continue supplementation. Dyslipidemia, chronic: Continue home medication Gemfibrozil 600 mg PO BIDAC. DVT Prophylaxis: SCDs and Xarelto following closely H and H will try to continue DVT prophylaxis he had bleeding from his surgical site, but now no bleeding anymore will follow closely. continue Xarelto. Discharge Planning Cleared for discharge by Orthopedic Surgery. Lane Llamas MD Feb 19, 2017 09:06
[2017-02-19] MEDS ORDERED: CALCIUM/VITAMIN D 250 MG/125 U TAB PO SCH ×2 (09:15→21:00)
[2017-02-19] MEDS ORDERED: GLYCERIN ADULT 2 GM SUPP RECTAL ONE (09:45)
[2017-02-19] MEDS: CHOLECALCIFEROL (VIT D3) 5000 UNIT CAP PO SCH (09:50)
[2017-02-19] MEDS: DOCUSATE SODIUM 100 MG CAP PO SCH (09:50)
[2017-02-19] MEDS: GEMFIBROZIL 600 MG TAB PO SCH (09:50)
[2017-02-19] MEDS: LISINOPRIL 20 MG TAB PO SCH (09:50)
[2017-02-19] MEDS: ENOXAPARIN SODIUM 30 MG/0.3 ML SYRINGE SQ SCH (09:50)
[2017-02-19] MEDS: LACTULOSE SYRUP 20 GM/30 ML CUP PO PRN (09:51)
[2017-02-19] MEDS: ACETAMINOPHEN/HYDROcodone 325 MG/7.5 MG TAB PO PRN (09:52)
--- NOTE | 2017-02-19 09:54 | HHI.DS ---
Discharge Summary Admission Date Feb 15, 2017 at 03:38 Discharge Date: Feb 19, 2017 Admitting Diagnosis left hip femoral neck fx (1) Fracture of femoral neck, left ICD Code: S72.002A Diagnosis: Principal (2) Fall ICD Code: W19.XXXA Diagnosis: Principal Procedures Left Hip Hemiarthroplasty 02/15/17 Brief History - From Admission History from patient's, ER physician communication, and review of medical records. Next Patient reported that he fell asked his kitchen while he turned around and somehow lost balance. He stated he had bad feet with severe deformities due to gouty arthritis. He usually does not use a cane or a walker at home. He denies any premonitory symptoms prior to this fall. He stated he simply lost balance and fell. He denies syncope. Denies hitting his head. He reports he called someone who had keys to his home who then called 911. Denies being on blood thinners. Reports he had a fall in last May or and had right hip fracture for which he had surgery done. He was at rehabilitation facility and was finally discharged home in July 2016. Apart from the above, patient denies any recent fever/nausea/vomiting/diarrhea/ urinary burning or pain on urination. Denies any hematemesis/hematochezia/melena/hematuria. Denies any chest pain/palpitations/shortness of breath/focal weakness. CBC/BMP: 02/19/17 0830 02/18/17 0531 Significant Findings Laboratory Tests Test 02/16/17 02/17/17 02/18/17 02/18/17 12:15 06:39 05:31 09:34 Urine Turbidity HAZY (CLEAR) Urine Protein 30 mg/dL (NEG-TRACE) Urine Occult Blood MOD (NEG) Urine Leukocyte Esterase LARGE (NEG) Urine RBC 76 /hpf (0-3) Urine WBC 85 /hpf (0-5) Urine Bacteria RARE /hpf (NONE) Urine Mucus FEW /lpf (OCC) Red Blood Count 2.16 MIL/MM3 2.70 MIL/MM3 (4.50-5.90) (4.50-5.90) Hemoglobin 6.6 GM/DL 7.7 GM/DL (13.0-17.0) (13.0-17.0) Hematocrit 19.7 % 23.3 % (39.0-51.0) (39.0-51.0) Red Cell Distribution Width 19.8 % 21.4 % (11.6-17.2) (11.6-17.2) Platelet Count 82 TH/MM3 71 TH/MM3 (150-450) (150-450) Monocytes (%) (Auto) 13.3 % (0.0-8.0) Band Neutrophils % 13 % (0-6) Metamyelocytes 2 % (0-1) Myelocytes 1 % (0-0) Platelet Estimate LOW (NORMAL) LOW (NORMAL) Tear Drop Cells 1+ (NORMAL) Ovalocytes 1+ (NORMAL) Blood Urea Nitrogen 25 MG/DL (7-18) 28 MG/DL (7-18) Creatinine 1.51 MG/DL 1.43 MG/DL (0.60-1.30) (0.60-1.30) Estimat Glomerular Filtration 44 ML/MIN (>89) 47 ML/MIN (>89) Rate Random Glucose 129 MG/DL 123 MG/DL (74-106) (74-106) Calcium Level 7.6 MG/DL 7.9 MG/DL (8.5-10.1) (8.5-10.1) Activated Partial 34.8 SEC Thromboplast Time (24.3-30.1) Test 02/18/17 02/19/17 15:13 08:30 Hemoglobin 7.8 GM/DL (13.0-17.0) Hematocrit 23.6 % (39.0-51.0) Platelet Count 95 TH/MM3 (150-450) Imaging Last Impressions Head CT 02/17/17 0000 Signed Impressions: Service Date/Time: Friday, February 17, 2017 19:00 - CONCLUSION: Negative for an acute process. Alexis Hawley MD FACR Hip and Pelvis X-Ray 02/15/17 0912 Signed Impressions: Service Date/Time: Wednesday, February 15, 2017 10:22 - CONCLUSION: 1. Status post left hip arthroplasty in normal anatomic alignment without acute fracture. Killian Messina MD Chest X-Ray 02/15/17 014 Signed Impressions: Service Date/Time: Wednesday, February 15, 2017 02:04 - CONCLUSION: No acute disease. Dominic Real MD PE at Discharge GENERAL: Well-nourished, well-developed patient in NAD, lying in bed comfortably. SKIN: Warm and dry. No rash. HEENT: Normocephalic. Atraumatic. Pupils equal and round. No scleral icterus. No nasal bleeding or discharge. Mucous membranes pink and moist. NECK: Supple. Trachea midline. CARDIOVASCULAR: Regular rate and rhythm. S1, S2 noted. No murmur appreciated. RESPIRATORY: No accessory muscle use. Clear to auscultation. Breath sounds equal bilaterally. GASTROINTESTINAL: Abdomen soft, non-tender, nondistended. Normoactive bowel sounds x4. MUSCULOSKELETAL: Left hip surgical dressing c/d/i, BRAD drain in place, patent, draining serosanguineous fluid. Extremities without clubbing, cyanosis, or edema. NEUROLOGICAL: Awake and alert. No obvious cranial nerve deficits. Motor grossly within normal limits. 5/5 muscle strength in bilateral upper and lower extremities. Normal speech. PSYCHIATRIC: Appropriate mood and affect; insight and judgment normal. Hospital Course This is a pleasant 86 y/o male with status post fall, with secondary left Femoral neck fracture status post Left Hip Hemiarthroplasty 02/15/17 by doctor Edgard Newberry. patient stable tolerating diet, Hemoglobin yesterday was 6.6 and given two units of PRBCs, asymptomatic, the Lovenox was removed due to worsening thrombocytopenia and switch to Xarelto today, I was informed by nurse the patient is bleeding will place on Hold Xarelto and follow H and H closely, already seen by Orthopedic surgery and recommended to hold anticoagulation, will try to continue DVT prophylaxis but will hold the medicines for tomorrow, and follow H and H may need new blood transfusion. 02/19: Patient stable seen in his bedroom, discussed with nurse, he has Constipation will need to get a BM before transfer to [facility], he has no bleeding, his new platelet count is 95 ready to go to [facility], no complaint. Assessment and Plan Mr. Arnold is an 86-year-old male patient with a known history of CKD stage III , CLL, chronic anemia, gout and prior falls who presented to the ED after loosing his balance at home and falling on his left hip. Left hip x-ray was performed and showed a mildly displaced left femoral neck fracture. Patient does admit back in May he sustained another fall, right hip fracture and status post ORIF. Status post left hip hemiarthroplasty 02/15/17 - Control pain, Hessmer 7.5/325 mg PO q3h PRN per pain scale, Morphine 3 mg IV q3h PRN breakthrough pain. Pain well controlled at this time. - No BM as of yet, Colace 100 mg PO BID and Lactulose added 30 ml PO daily to regimen. - Supplemental O2 as needed. - Afebrile now, no leukocytosis, q24hr. - Encourage ambulation as tolerated. Fall precautions. - has new bleeding from Surgical Area, received Xarelto today, as per Orthopedic Surgery to avoid DVT prophylaxis he is not bleeding today, will try to continue DVT prophylaxis as soon as he is not bleeding due to high risk for thrombosis due to his basal pathology CLL plus recent surgery. okay from Orthopedic Surgery to go to [facility]. Normocytic, normochromic anemia suspect secondary to surgery, chronic anemia and CLL history. Thrombocytopenia/Anemia for the patient is normal to have his Hemoglobin low 8s. - received Venofer and blood transfusion Hemoglobin 7.8 Platelet count today 95 okay to transfer to [facility] Chronic kidney disease stage III - GFR on presentation 50 --> 44, actually improved since last admission. Creatinine 1.51. - Monitor I&O. Hypertension, chronic - controlled. Vitamin D deficiency - Vit D level 26.2. Continue supplementation. Dyslipidemia, chronic: Continue home medication Gemfibrozil 600 mg PO BIDAC. DVT Prophylaxis: SCDs and Xarelto following closely H and H will try to continue DVT prophylaxis he had bleeding from his surgical site, but now no bleeding anymore will follow closely. continue Xarelto. Discharge Planning Cleared for discharge by Orthopedic Surgery. Pt Condition on Discharge: Good Discharge Disposition: Rehab Inpatient Discharge Time: > 30 minutes Discharge Instructions DIET: Follow Instructions for: Heart Healthy Diet Activities you can perform: See Additionl Instruction Other Activity Instructions: Follow PT and Orthopedic surgery recommendations in CIR. Lane Llamas MD Feb 19, 2017 09:54
[2017-02-19] MEDS ORDERED: SOD PHOSPHATE/SOD BIPHOSPHATE (ADULT) ENEMA 133ML RECTAL ONE (10:30)
[2017-02-19] MEDS ORDERED: ERGOCALCIFEROL (VIT D2) 50,000 UNIT CAP PO SCH (12:00)
== END 2017-02-19 12:27 | DRG 470 ==
LOC: NEPE 01:26 → NEDA 03:38 → N06A 04:54
PROVIDERS: ADMIT Internal Medicine; ATTEND Internal Medicine
PROC: 0SRS01A Replacement of Left Hip Joint, Femoral Surface with Metal Synthetic Substitute, Uncemented, Open Approach (ICD-10-PCS; principal; 2017-02-15 07:51)
PROC: 30233N1 Transfusion of Nonautologous Red Blood Cells into Peripheral Vein, Percutaneous Approach (ICD-10-PCS; 2017-02-17)
DX: S72.002A Fracture of unspecified part of neck of left femur, initial encounter for closed fracture (principal); C91.10 Chronic lymphocytic leukemia of B-cell type not having achieved remission; N18.3 Chronic kidney disease, stage 3 (moderate); D64.9 Anemia, unspecified; D69.6 Thrombocytopenia, unspecified; M10.9 Gout, unspecified; S00.81XA Abrasion of other part of head, initial encounter; E78.5 Hyperlipidemia, unspecified; I12.9 Hypertensive chronic kidney disease with stage 1 through stage 4 chronic kidney disease, or unspecified chronic kidney disease; K21.9 Gastro-esophageal reflux disease without esophagitis; R26.81 Unsteadiness on feet; E55.9 Vitamin D deficiency, unspecified; K59.00 Constipation, unspecified; Z91.81 History of falling; W01.0XXA Fall on same level from slipping, tripping and stumbling without subsequent striking against object, initial encounter; Y92.000 Kitchen of unspecified non-institutional (private) residence as the place of occurrence of the external cause
CPT/HCPCS: 36430; 70450; 71010; 73502; 80048; 80053; 81001; 82306; 83735; 84100; 85007; 85014; 85018; 85027; 85049; 85610; 85730; 86850; 86900; 86901; 86920; 87077; 87086; 87186; 93005; C1776; J0690; J0696; J1580; J1650; J1756; J1940; J2270; J2370; J3370; J7030; J7050; J7120; L1830; P9016